=== PATIENT | male | born 1950 | race Caucasian/White ===

== ENCOUNTER → 2024-01-15 | Outpatient (CLI) | payer OTHER ==
--- NOTE | 2024-01-15 14:54 | P.PAINPG ---
PQRS Measure Charge Sheet Comment: HISTORY OF PRESENT ILLNESS: A 74 yr old male as a referral from the [facility] presents today w severe and chronic L hip pain secondary to L hip DJD for evaluation. Pt states pain level is provoked at 10 /10 in intensity, constant, localized in the L hip, predominantly axial, throbbing in character without shooting pain. Pain is provoked by climbing stairs. Pain is alleviated by medications (Duloxetine, Tyl), Lidoderm topical, sleep, repositioning and rest . Oswestry axial pain score at 26. PMH: OA, OP, BPH, MDD, IDDM II, CKD, HTN, CAD, Hypothyroidism, GERD, Hyperlipidemia PSH: Defibrillator, Open Heart Surgery w CABG x5, Cardiac Cath w Stents, Cardiac Ablation, R 2nd Digit Surgery, RUE Surgery, Tonsillectomy SH: Daily tobacco use, Hx of ETOH abuse (Sober x 40 yrs), No illicit drug use. . FH: CAD, DM, COPD, CA. All: See list Meds: See list REVIEW OF ORGAN SYSTEMS: CONSTITUTIONAL: No fevers or chills. No recent weight loss. NEUROLOGICAL: + numbness and tingling along the distal extremities. No seizure disorders or headaches. MUSCULOSKELETAL: + pain PSYCHIATRIC: Denies current depression or suicidal thoughts. Physical Examinations : Constitutional : Cooperative , not in acute distress . Neurologic : Cranial nerve II to XII intact. No focal neurological deficits. Psychiatric : alert & oriented x 3. Matching mood & appropriate affect. Judgment & insight intact. Musculoskeletal : Cervical Spine Motor strength in the deltoid and biceps: Normal right side. Normal Left side Motor strength biceps and the wrist extensors: Normal right side . Normal left side Motor strength in the triceps muscle: Normal right side. Normal left side Deep tendon reflexes: Normal at the biceps. Normal at Brachioradialis. Normal at triceps Vertebral body tenderness to deep palpation over Cervical facet loading test: positive bilaterally Spurling test: positive bilaterally Neck distraction test: positive bilaterally Maryam sign: positive bilaterally Lumbar spine Motor strength lower extremities ,thigh and legs 5/5 Right side , 5/5 Left side Deep tendon reflexes : Normal Knee Jerk. Normal Ankle Jerk Vertebral body tenderness over L5 Brunson Test positive L L5-S1 Lumbar facet Loading Test: positive Right / positive Left Range of motion of the lumbar spine Flexion 30 degrees, extension 10 degrees Straight Leg Raise test: Left/ Right positive at degrees Seema test: positive right / positive left. Severe tenderness over the Sacroiliac joint on the Right / Left sides Gaenslen test: positive bilaterally Seated flexion test: positive bilaterally. Sacral spine : Severe tenderness over the Sacroiliac joint: right side / left side Range of motion: Flexion of the lumbar spine <60 degrees Range of motion: Extension of the lumbar spine <20 degrees Gaenslen's Test positive Seema test: positive right side / left side Thigh Thrust Test Sacral Thrust Test Imaging: CT non contrast of the lumbar spine from 12/22/23 reviewed Assessment/ Plan : Lumbar DDD Recommendation of L TFESI L5-S1 #1. May need a series of injections for optimal pain relief. Risks, benefits of procedure discussed and patient verbalized understanding. Admits to anti- coagulant use or medical history of diabetes. Protocol for discontinuation/ continuation of medications karthikeyan procedure discussed. Minimal anesthesia provided, if clinically indicated, consisting of Versed and Fentanyl. Would benefit from L hip x ray M16.10 May need additional testing if indicated. All questions answered. I have spent greater than 30 minutes on patient care today. Dr Taylor was available by phone for the evaluation of this patient. The time was used to review the medical records including relevant urine studies and Prescription history (MAPs), review of the available imaging, evaluation and examination of the patient, coordination of care with the medical staff and if applicable referring physicians, as well as creation of the medical record Controlled Substance Measures - Controlled Substance Measures Is patient prescribed a controlled substance at discharge?: No
[2024-01-15 15:05] VITALS: BP 132/73; PULSE 86; RESP 16
== END ==
LOC: PNWHC3 13:46
PROVIDERS: ATTEND Specialist
DX: M54.30 Sciatica, unspecified side (principal); M43.17 Spondylolisthesis, lumbosacral region; M51.37 Other intervertebral disc degeneration, lumbosacral region; Z87.891 Personal history of nicotine dependence
CPT/HCPCS: 99211

== ENCOUNTER → 2024-01-15 | Outpatient (CLI) | payer OTHER ==
--- NOTE | 2024-01-15 17:04 | XR ---
EXAMINATION TYPE: XR Hip Complete LT DATE OF EXAM: 01/15/2024 3:05 PM CLINICAL INDICATION:Male, 74 years old with history of M16.10 UNILATERAL PRIMARY OSTEOARTHRITIS, UNSP ECIF; PHH COMPARISON: None. TECHNIQUE: XR Hip Complete LT; hip was examined in the frontal and lateral projections and a AP pelvi s. FINDINGS: No evidence for acute process, joint dislocation or significant soft tissue swelling. Osteo phyte formation of the superior acetabulum of the hip. There is moderate joint space narrowing. I dis cussed the arterial vasculature. IMPRESSION: 1. No evidence for acute process. 2. Moderate to severe hip osteoarthrosis.
== END | disposition home or self-care (01) ==
LOC: RADXRMAIN 14:49
PROVIDERS: ATTEND Physician Assistant Medical
DX: M16.12 Unilateral primary osteoarthritis, left hip (principal)
CPT/HCPCS: 73502

== ENCOUNTER → 2024-01-29 | Outpatient (CLI) | payer OTHER ==
--- NOTE | 2024-01-29 13:53 | CT ---
EXAMINATION TYPE: CT hip LT wo con DATE OF EXAM: 01/29/2024 COMPARISON: None HISTORY: left hip pain CT DLP: 221.9 mGycm Automated exposure control for dose reduction was used. FINDINGS: There is no left hip fracture, dislocation or focal intraosseous abnormality. The joint space is well -preserved. There is hypertrophic spurring of the acetabulum indicating mild osteoarthritis. The left hemipelvis is intact. IMPRESSION: 1. No hip fracture or dislocation. 2. Unremarkable left hemipelvis without evidence of trauma. 3. Mild osteoarthritic change of the left hip
== END | disposition home or self-care (01) ==
LOC: RADCTMAIN 13:17
PROVIDERS: ATTEND Specialist
DX: M16.12 Unilateral primary osteoarthritis, left hip (principal); M54.32 Sciatica, left side

== ENCOUNTER 2024-02-03 10:34 | Day surgery (SDC) | payer OTHER ==
[~2024-02-03 10:34] MED LIST: LACTATED RINGERS 1,000 ML IV SCH
[2024-02-03 11:07] VITALS: TEMP 97.1
[2024-02-03 11:13] LABS: Glucose,Whole Blood 139 mg/dL (70-110)
[2024-02-03] MEDS ORDERED: DEXAMETHASONE SOD PHOSPHATE 10 MG/ML 1 ML VIAL ONE (11:31)
[2024-02-03] MEDS ORDERED: IOPAMIDOL M200 10 ML VIAL ONE (11:31)
--- NOTE | 2024-02-03 11:39 | P.PCN ---
Date of Procedure: 02/03/24 Description of Procedure: PREOPERATIVE DIAGNOSIS: Lumbar radiculopathy POSTOPERATIVE DIAGNOSIS: Lumbar radiculopathy PROCEDURE 1. Transforaminal epidural steroid injection under fluoroscopic guidance left L5-S1 2. Lumbar epidurogram IMAGING Fluoroscopy was used, images where saved to the medical record ANESTHESIA: Patient re-evaluated immediately prior to sedation local only EBL: Minimal PROCEDURE DESCRIPTION / TECHNIQUE: The patient was seen and identified in the preoperative area. Risks, benefits, complications, and alternatives were discussed with the patient. The patient agreed to proceed with the procedure and signed the consent, vital signs were stable prior to the procedure. Patient was taken to the OR and time out was completed. The patient was placed in the prone position on procedure table and a pillow was placed under the abdomen to reduce lumbar lordosis. The lumbosacral area was prepped and draped in the usual sterile fashion. Vital signs were closely monitored during the procedure. Conscious sedation was used. Using oblique fluoroscopy, the chin of the "Sea dog" at the pedicle and the skin and deeper tissues just below was localized with 1% lidocaine. Subsequently, a 22-gauge 3.5-inch spinal needle was advanced under a tunneled view fluoroscopic guidance just underneath the chin of the "Sea dog". Under lateral fluoroscopy, the needle was then advanced to the posterior border interforaminal space. After negative aspiration of CSF and blood and with no paresthesias, 1 mL of Omnipaque-240 contrast dye was injected excellent epidurogram. Subsequently, a solution totalling 2ml of dexamethasone and PFNS was injected after negative aspiration (total of 10mg of dexamethasone was used). The needle was removed intact. COMPLICATIONS: None DISPOSITION: The patient was placed in a supine position and transferred to the recovery area in a stable condition for observation. There was no evidence of lower extremity motor or sensory deficit after the procedure. Patient was discharged from the recovery room after meeting discharge criteria. Home discharge instructions were given to the patient by the staff. The patient was reexamined prior to discharge. Follow up as directed.
[2024-02-03 12:04] VITALS: BP 109/66; PULSE 72; RESP 14
--- NOTE | 2024-02-03 12:05 | FL ---
EXAMINATION TYPE: FL guided pain mgmt statistic DATE OF EXAM: 02/03/2024 FLUOROSCOPY Fluoroscopy time of 11 seconds was used during lumbar nerve root injections. 2 image/s document/s th e procedure. 0.71932 mGycm2 DAP dose
== END 2024-02-03 12:08 | disposition home or self-care (01) ==
LOC: ORPAIN 10:34
PROVIDERS: ATTEND Hospitalist
DX: M54.16 Radiculopathy, lumbar region (principal); E11.9 Type 2 diabetes mellitus without complications; I48.91 Unspecified atrial fibrillation; Z79.01 Long term (current) use of anticoagulants
CPT/HCPCS: 64483; J1100; Q9966

== ENCOUNTER 2024-02-11 01:52 | Inpatient (IN) | payer OTHER, MEDICARE ==
[2024-02-11] MEDS: ASPIRIN 81 MG PO STA (02:07)
[2024-02-11] MEDS: SODIUM CHLORIDE 0.9% 1,000 ML IV STA ×2 (02:07→03:16)
[2024-02-11] MEDS: DEXTROSE 5% IN WATER 100 ML with AMIODARONE 150 MG IV ONE (02:08)
[2024-02-11] MEDS: AMIODARONE 360 MG in DEXTROSE 5% IN WATER 200 ML IV ONE (02:08)
[2024-02-11] MEDS: HEPARIN SODIUM 1,000 UN/ML (10ML VL) IV ONE (02:13)
[2024-02-11] MEDS: HEPARIN SOD,PORK IN 0.45% NACL 25,000 UNIT in 0.45% NACL 1 250ML.BAG IV SCH (02:21)
[2024-02-11 02:38] LABS: ALT 17 U/L (4-49); AST 18 U/L (17-59); African American GFR (CKD) 90 (>60 ml/min/1.73 sqM); Albumin 3.9 g/dL (3.5-5.0); Alkaline Phosphatase 60 U/L (38-126); Anion Gap 7 mmol/L; Blood Urea Nitrogen 14 mg/dL (9-20); Calcium 8.9 mg/dL (8.4-10.2); Carbon Dioxide 24 mmol/L (22-30); Chloride 105 mmol/L (98-107); Glucose 157 mg/dL (74-99); Magnesium 1.9 mg/dL (1.6-2.3); Non-African American GFR(CKD) 78 (>60 ml/min/1.73 sqM); Potassium 3.9 mmol/L (3.5-5.1); Sodium 136 mmol/L (137-145); Total Bilirubin 0.7 mg/dL (0.2-1.3); Total Protein 6.1 g/dL (6.3-8.2)
[2024-02-11 02:58] LABS: Partial Thromboplastin Time 26.6 sec (22.0-30.0); Prothrombin Time 10.9 sec (10.0-12.5)
[2024-02-11] MEDS ORDERED: NALOXONE 0.4 MG/ML 1 ML VIAL IV PRN (03:12)
--- NOTE | 2024-02-11 03:34 | ED ---
General Adult HPI - General Chief complaint: Chest Pain Stated complaint: palputations, defibulator Time Seen by Provider: 02/11/24 01:52 Source: patient, EMS, RN notes reviewed, old records reviewed Mode of arrival: EMS Limitations: no limitations - History of Present Illness Initial comments: Patient is a 74-year-old male who presents emergency department complaining of heart palpitations, as well as AICD firing. Patient has a past medical history remarkable for hypertension, atrial fibrillation, CABG. States he is on Eliquis. Receives most of his care through the [facility]. Patient states that his AICD fired 5 times prior to arrival here in the emergency department. Yesterday evening he was having lightheadedness episodes with heart palpitations. This is when the AICD fired shortly prior to arrival. It occurred 5 times over the course of approximately 1 minute. Has not fired since. Presents for further evaluation at this time. Denies any other acute complaints. States he currently does not have lightheadedness or heart palpitations. Denies any nausea or vomiting. Denies abdominal pain. Denies any aldair chest pain at any point, endorsing only strong heart palpitations at home.. Denies any shortness of breath. Denies fevers or chills or cough. No other acute complaints at this time. Presents for further evaluation. - Related Data Home Medications Medication Instructions Recorded Confirmed Acetaminophen Tab [Tylenol Tab] 500 mg PO Q6H 02/02/24 02/03/24 Afluzosine 10 mg PO HS 02/02/24 02/03/24 Apixaban [Eliquis] 5 mg PO BID 02/02/24 02/03/24 B12 (Unk) 500 mcg PO DAILY 02/02/24 02/03/24 Cholecalciferol (Vitamin D3) 50 mcg PO DAILY 02/02/24 02/03/24 [Vitamin D3 (50 Mcg = 2000 Iu)] DULoxetine HCL [Cymbalta] 60 mg PO DAILY 02/02/24 02/03/24 Empagliflozin [Jardiance] 25 mg PO DAILY 02/02/24 02/03/24 Eplerenone 25 mg PO DAILY 02/02/24 02/03/24 Folic Acid 1 mg PO DAILY 02/02/24 02/03/24 Furosemide [Lasix] 40 mg PO DAILY 02/02/24 02/03/24 Levothyroxine Sodium 125 mcg PO DAILY 02/02/24 02/03/24 Melatonin 3 mg PO HS 02/02/24 02/03/24 Pantoprazole [Protonix] 40 mg PO DAILY 02/02/24 02/03/24 Ranolazine (Unk) 1 dose PO BID 02/02/24 02/03/24 Rosuvastatin Calcium 40 mg PO HS 02/02/24 02/03/24 Sacubitril/Valsartan [Entresto 24 1 each PO BID 02/02/24 02/03/24 mg-26 mg Tablet] Vit C( Unk) 500 mg PO DAILY 02/02/24 02/03/24 carvediloL [Carvedilol] 25 mg PO BID 02/02/24 02/03/24 metFORMIN HCL [Metformin HCl] 1,000 mg PO BID 02/02/24 02/03/24 Allergies Allergy/AdvReac Type Severity Reaction Status Date / Time No Known Allergies Allergy Verified 02/11/24 02:01 Review of Systems ROS Statement: Those systems with pertinent positive or pertinent negative responses have been documented in the HPI. Review of Systems: CONST: Denies fever EYES: Denies blurry vision ENT: Denies nasal congestion C/V: Endorses intermittent heart palpitations RESP: Denies shortness of breath GI: Denies abdominal pain : Denies dysuria SKIN: Denies rash. MSK: Denies joint pain. NEURO: Denies headache ROS Other: All systems not noted in ROS Statement are negative. Past Medical History Past Medical History: Atrial Fibrillation, Chest Pain / Angina History of Any Multi-Drug Resistant Organisms: None Reported Past Surgical History: Heart Catheterization Past Psychological History: No Psychological Hx Reported Smoking Status: Unknown if ever smoked Past Alcohol Use History: None Reported Past Drug Use History: None Reported General Exam - General Exam Comments Initial Comments: General: Appears in no acute distress. HEAD: Normal with no signs of head trauma. EYES: PERRLA, EOMI, conjunctiva normal, no discharge. ENT: Hearing grossly intact, normal oropharynx. RESPIRATORY: Clear breath sounds bilaterally. No wheezes, rales, or rhonchi. C/V: Irregular rate and rhythm. S1 and S2 auscultated. No significant peripheral edema. Peripheral pulses 2+ intact throughout. ABD: Abd is soft, nontender, nondistended EXT: Normal range of motion, no obvious deformity SKIN: No rashes or lesions observed on exposed skin. NEURO: Alert and oriented x 4. Limitations: no limitations Course Vital Signs 02/11/24 02/11/24 02/11/24 01:53 01:57 02:00 Temperature 98.9 F Pulse Rate 172 H Pulse Rate [ 128 H 98 Pulse Oximetery ] Respiratory 20 16 17 Rate Blood Pressure 114/87 Blood Pressure 140/75 [Right Arm] O2 Sat by Pulse 97 97 96 Oximetry 02/11/24 02/11/24 02/11/24 02:15 02:30 02:46 Temperature Pulse Rate 74 Pulse Rate [ 64 73 Pulse Oximetery ] Respiratory 13 10 L 14 Rate Blood Pressure 111/61 Blood Pressure 109/60 113/63 [Right Arm] O2 Sat by Pulse 96 95 97 Oximetry 02/11/24 02/11/24 02/11/24 02:50 03:10 03:20 Temperature Pulse Rate 71 67 62 Pulse Rate [ Pulse Oximetery ] Respiratory 19 13 15 Rate Blood Pressure 111/61 110/61 107/61 Blood Pressure [Right Arm] O2 Sat by Pulse 96 95 95 Oximetry 02/11/24 02/11/24 02/11/24 03:30 03:40 04:00 Temperature Pulse Rate 68 61 Pulse Rate [ 63 Pulse Oximetery ] Respiratory 17 14 13 Rate Blood Pressure 107/61 123/67 Blood Pressure 111/61 [Right Arm] O2 Sat by Pulse 97 96 99 Oximetry Medical Decision Making - Medical Decision Making Was pt. sent in by a medical professional or institution (, PA, SLICING MACHINE FEEDER, urgent care, hospital, or alf...) When possible be specific @ -No Did you speak to anyone other than the patient for history (EMS, parent, family, police, friend...)? What history was obtained from this source @ -No Did you review nursing and triage notes (agree or disagree)? Why? @ -I reviewed and agree with nursing and triage notes Were old charts reviewed (outside hosp., previous admission, EMS record, old EKG , old radiological studies, urgent care reports/EKG's, alf records)? Report findings @ -Reviewed interrogation report for the device which does show that patient appears to have been in runs of ventricular tachycardia at home which likely triggered the AICD to fire. Differential Diagnosis (chest pain, altered mental status, abdominal pain women, abdominal pain men, vaginal bleeding, weakness, fever, dyspnea, syncope, headache, dizziness, GI bleed, back pain, seizure, CVA, palpatations, mental health, musculoskeletal)? @ -Differential Palpitations Ventricular arrhythmias, atrial arrhythmias, myocardial infarction, anemia, thyrotoxicosis, electrolyte imbalance, hypokalemia, pulmonary embolism, pulmonary disease, drugs, alcohol, anxiety, stress.... This is not meant to be an all-inclusive list. EKG interpreted by me (3pts min.). @ -As above X-rays interpreted by me (1pt min.). @ -Chest x-ray reveals no obvious acute cardiopulmonary process. CT interpreted by me (1pt min.). @ -None done U/S interpreted by me (1pt. min.). @ -None done What testing was considered but not performed or refused? (CT, X-rays, U/S, labs)? Why? @ -None What meds were considered but not given or refused? Why? @ -None Did you discuss the management of the patient with other professionals (ronnell galloway i.e. , PA, SLICING MACHINE FEEDER, lab, RT, psych nurse, social media director, pantry cook, teacher, equal employment opportunity officer, manager rn case)? Give summary @ -Discussed with on-call cardiology, Dr. Llamas who was in agreement plan for amiodarone drip and aspirin. Also requested patient be placed on heparin drip. Otherwise was in agreement with plan for workup. Would like to be notified if patient has severe chest pain or change in clinical status. I spoke with the admitting physician, Dr. Summers who accepted the admission. Was smoking cessation discussed for >3mins.? @ -No Was critical care preformed (if so, how long)? @ -Yes, 32 minutes. Were there social determinants of health that impacted care today? How? ( Homelessness, low income, unemployed, alcoholism, drug addiction, transportation, low edu. Level, literacy, decrease access to med. care, group home, rehab)? @ -No Was there de-escalation of care discussed even if they declined (Discuss DNR or withdrawal of care, Hospice)? DNR status @ -No What co-morbidities impacted this encounter? (DM, HTN, Smoking, COPD, CAD, Cancer, CVA, ARF, Chemo, Hep., AIDS, mental health diagnosis, sleep apnea, morbid obesity)? @ -CABG, atrial fibrillation, AICD Was patient admitted / discharged? Hospital course, mention meds given and route, prescriptions, significant lab abnormalities, going to OR and other pertinent info. @ -Based on the patient's presentation and physical exam, presents emergency department with primary complaint of AICD firing. Has a significant cardiac history. Patient was placed on room 5 upon arrival and on the monitor patient was going in and out of runs of ventricular tachycardia. Remainder of his vital signs within acceptable limits. Patient was placed on the pads and portable defibrillator monitor placed at bedside. Currently is not undergoing shocks by his own AICD. Patient initiated on amiodarone drip. EKG is otherwise revealed no evidence of acute ischemic process. We will obtain cardiopulmonary workup. Patient remains asymptomatic at this time. He was in agreement this plan. I did discuss the case with Dr. Llamas of cardiology upon arrival for the patient when he went into his runs of V. tach. He was in agreement the plan for workup in addition to aspirin. Requested patient be placed on heparin and he be notified of any change in clinical status. Repeat EKG shows a paced rhythm with no runs of V. tach. Chest x-ray shows no obvious acute cardiopulmonary process. Laboratory studies remarkable for e levated troponin of 0.067. On reevaluation, patient remains asymptomatic. Will continue to monitor at this time. He will be admitted to 3 S. Echo ordered. Will continue with amiodarone, heparin therapy. Cardiology already consulted. He was in agreement this plan. I spoke with the admitting physician, Dr. Summers who accepted the admission. Patient's device was interrogated and device report placed on the patient's chart. Does appear that he was in runs of V. tach at home which likely trig gered the AICD to fire. Undiagnosed new problem with uncertain prognosis? @ -No Drug Therapy requiring intensive monitoring for toxicity (Heparin, Nitro, Insulin, Cardizem)? @ -Heparin Were any procedures done? @ -No Diagnosis/symptom? @ -Ventricular tachycardia, AICD firing, elevated troponin Acute, or Chronic, or Acute on Chronic? @ -Acute Uncomplicated (without systemic symptoms) or Complicated (systemic symptoms)? @ -Complicated Side effects of treatment? @ -No Exacerbation, Progression, or Severe Exacerbation? @ -No Poses a threat to life or bodily function? How? (Chest pain, [place], [place], pneumonia, PE, COPD, DKA, ARF, appy, cholecystitis, CVA, Diverticulitis, Homicidal, Suicidal, threat to staff... and all critical care pts) @ -Yes - Lab Data Result diagrams: 02/11/24 01:30 02/11/24 01:30 Lab Results 02/11/24 02/11/24 02/11/24 Range/Units 01:30 01:30 01:30 WBC 11.0 H (3.8-10.6) k/uL RBC 4.30 (4.30-5.90) m/uL Hgb 15.2 (13.0-17.5) gm/dL Hct 45.1 (39.0-53.0) % MCV 104.9 H (80.0-100.0) fL MCH 35.5 H (25.0-35.0) pg MCHC 33.8 (31.0-37.0) g/dL RDW 13.1 (11.5-15.5) % Plt Count 90 L (150-450) k/uL MPV 12.0 Neutrophils % 81 % Lymphocytes % 11 % Monocytes % 7 % Eosinophils % 1 % Basophils % 0 % Neutrophils # 8.9 H (1.3-7.7) k/uL Lymphocytes # 1.2 (1.0-4.8) k/uL Monocytes # 0.7 (0-1.0) k/uL Eosinophils # 0.1 (0-0.7) k/uL Basophils # 0.0 (0-0.2) k/uL Manual Slide Review Performed Macrocytosis Slight PT 10.9 (10.0-12.5) sec INR 1.0 (<1.2) APTT 26.6 (22.0-30.0) sec Sodium 136 L (137-145) mmol/L Potassium 3.9 (3.5-5.1) mmol/L Chloride 105 (98-107) mmol/L Carbon Dioxide 24 (22-30) mmol/L Anion Gap 7 mmol/L BUN 14 (9-20) mg/dL Creatinine 0.96 (0.66-1.25) mg/dL Est GFR (CKD-EPI)AfAm 90 (>60 ml/min/1.73 sqM) Est GFR (CKD-EPI)NonAf 78 (>60 ml/min/1.73 sqM) Glucose 157 H (74-99) mg/dL Calcium 8.9 (8.4-10.2) mg/dL Magnesium 1.9 (1.6-2.3) mg/dL Total Bilirubin 0.7 (0.2-1.3) mg/dL AST 18 (17-59) U/L ALT 17 (4-49) U/L Alkaline Phosphatase 60 (38-126) U/L Troponin I (0.000-0.034) ng/mL Total Protein 6.1 L (6.3-8.2) g/dL Albumin 3.9 (3.5-5.0) g/dL 02/11/24 Range/Units 01:30 WBC (3.8-10.6) k/uL RBC (4.30-5.90) m/uL Hgb (13.0-17.5) gm/dL Hct (39.0-53.0) % MCV (80.0-100.0) fL MCH (25.0-35.0) pg MCHC (31.0-37.0) g/dL RDW (11.5-15.5) % Plt Count (150-450) k/uL MPV Neutrophils % % Lymphocytes % % Monocytes % % Eosinophils % % Basophils % % Neutrophils # (1.3-7.7) k/uL Lymphocytes # (1.0-4.8) k/uL Monocytes # (0-1.0) k/uL Eosinophils # (0-0.7) k/uL Basophils # (0-0.2) k/uL Manual Slide Review Macrocytosis PT (10.0-12.5) sec INR (<1.2) APTT (22.0-30.0) sec Sodium (137-145) mmol/L Potassium (3.5-5.1) mmol/L Chloride (98-107) mmol/L Carbon Dioxide (22-30) mmol/L Anion Gap mmol/L BUN (9-20) mg/dL Creatinine (0.66-1.25) mg/dL Est GFR (CKD-EPI)AfAm (>60 ml/min/1.73 sqM) Est GFR (CKD-EPI)NonAf (>60 ml/min/1.73 sqM) Glucose (74-99) mg/dL Calcium (8.4-10.2) mg/dL Magnesium (1.6-2.3) mg/dL Total Bilirubin (0.2-1.3) mg/dL AST (17-59) U/L ALT (4-49) U/L Alkaline Phosphatase (38-126) U/L Troponin I 0.067 H* (0.000-0.034) ng/mL Total Protein (6.3-8.2) g/dL Albumin (3.5-5.0) g/dL - EKG Data -: EKG Interpreted by Me EKG Comments: 12-lead Electrocardiogram Interpretation Note EKG was reviewed and interpreted by myself. 12-lead ECG performed at 0155 is interpreted by me as revealing partial ventricular paced rhythm with PVC followed by ventricular tachycardia at a rate of 137 beats per minute. Indeterminate axis. QRS duration is 218 ms, QTc is 382 ms.. Findings concerning for run of ventricular tachycardia... 12-lead Electrocardiogram Interpretation Note EKG was reviewed and interpreted by myself. 12-lead ECG performed at 0234 is interpreted by me as revealing ventricularly paced rhythm at a rate of 68 beats per minute. Indeterminate axis. QRS durations 113 ms, QTc is 430 ms.. There were no ST or T wave abnormalities to suggest myocardial ischemia or injury. R wave progression across the precordium was satisfactory. By my interpretation this EKG is non-diagnostic for acute ischemia. . Critical Care Time Critical Care Time: Yes Total Critical Care Time: 32 Disposition Clinical Impression: AICD discharge, Ventricular tachycardia, Elevated troponin Disposition: ADMITTED IP TO THIS HOSP Condition: Serious Time of Disposition: 03:12
[2024-02-11 03:35] LABS: Basophils % (A) 0 %; Eosinophils # (A) 0.1 k/uL (0-0.7); Eosinophils % (A) 1 %; HCT 45.1 % (39.0-53.0); HGB 15.2 gm/dL (13.0-17.5); Lymphocytes # (A) 1.2 k/uL (1.0-4.8); Lymphocytes % (A) 11 %; MCH 35.5 pg (25.0-35.0); MCHC 33.8 g/dL (31.0-37.0); MCV 104.9 fL (80.0-100.0); Macrocytosis Slight; Monocytes # (A) 0.7 k/uL (0-1.0); Monocytes % (A) 7 %; Neutrophils # (A) 8.9 k/uL (1.3-7.7); Neutrophils % (A) 81 %; RDW 13.1 % (11.5-15.5)
[2024-02-11 03:53] LABS: Platelet Count 90 k/uL (150-450)
[2024-02-11] MEDS: SODIUM CHLORIDE 0.9% 1,000 ML IV SCH (04:07)
--- NOTE | 2024-02-11 04:32 | XR ---
EXAM: XR Chest, 1 View CLINICAL HISTORY: Chest Pain TECHNIQUE: Frontal view of the chest. COMPARISON: No relevant prior studies available. FINDINGS: Left subclavian dual-chamber pacemaker with AICD. Heart is enlarged. Pulmonary vessels are top normal in caliber. Minimal bibasilar vascular crowding. No pleural effusion or pneumothorax. Bones are unremarkable. IMPRESSION: Cardiomegaly. Pulmonary vessels top normal in caliber. Minimal bibasilar atelectasis.
--- NOTE | 2024-02-11 04:55 | P.HPIM ---
History of Present Illness H&P Date: 02/11/24 Patient is a 74-year-old male with a PMH of CAD status post CABG and AICD placement, A-fib, who presents to the emergency room after he was shocked by his AICD. Patient notes that roughly around midnight he was sitting on his couch in his home when he suddenly developed some palpitations associated with lightheadedness and nausea. Within a few seconds, his AICD shocked him followed by multiple other shocks within a period of 1 minute. Patient notes receiving a total of 5 shocks from the AICD within a few minutes. Notes that his symptoms resolved after the shocks. He was at his baseline at the time of interview and had no active complaints. Denied experiencing chest discomfort, shortness of breath, cough, fever, chills, abdominal pain, diarrhea. Chest x-ray in the emergency room revealed cardiomegaly with no other acute abnormalities. Laboratory evaluation remarkable for leukocytosis of 11.0, MCV 104.9, platelet count 90, sodium 136, glucose 157, troponin 0.067. Of note, the patient was noted to be in asymptomatic V. tach in the emergency room and was started on amiodarone infusion. Case was also discussed with cardiology on- call. ED documentation reviewed and case discussed with ED provider. Review of systems: Pertinent positives and negatives as discussed in HPI, a complete review of systems was performed and all other systems are negative. Physical examination: Vital signs reviewed General: non toxic, no distress, appears at stated age, normal weight Derm: no unusual rashes/lesions, warm Head: atraumatic, normocephalic, symmetric Eyes: EOMI, no lid lag, anicteric sclera, pupils equal round reactive to light ENT: Nose and ears atraumatic Neck: No cervical lymphadenopathy, trachea midline, supple Mouth: no lip lesion, mucus membranes moist Cardiovascular: S1S2 reg, no murmur, positive dorsalis pedis pulse bilateral, no edema Lungs: CTA bilateral, no rhonchi, no rales, no accessory muscle use Abdominal: soft, nontender to palpation, no guarding Ext: muscle strength 5 out of 5 in all 4 extremities grossly, no gross muscle atrophy, no contractures, Neuro: CN II-XI grossly intact, no gross focal neuro deficits Psych: Alert, oriented, appropriate affect Assessment: Tachyarrhythmia with AICD firing, V. tach in ED Leukocytosis, likely secondary to acute stressor with no signs of active infection at this time Elevated troponin, likely due to ongoing tachyarrhythmia and shocks Thrombocytopenia, no baseline available for comparison Macrocytosis Chronic conditions: A-fib Imaging: Chest x-ray in the emergency room revealed cardiomegaly with no other acute abnormalities. Data Review: Laboratory evaluation remarkable for leukocytosis of 11.0, MCV 104.9, platelet count 90, sodium 136, glucose 157, troponin 0.067. Of note, the patient was noted to be in asymptomatic V. tach in the emergency room and was started on amiodarone infusion. Case was also discussed with cardiology on-call. Plan: Cardiology consulted Cardiac monitoring Trend troponin Continue patient on amiodarone and heparin infusions Continue IV fluids with normal saline 75 cc/h Echocardiogram ordered Check B12 and folate levels Resume home medications once reconciled DVT prophylaxis: Heparin infusion The patient is admitted with an anticipated greater than 2 midnight stay for evaluation of tachyarrhythmia CODE STATUS: Full Code Discussed with: Patient Anticipated discharge place: Home Past Medical History Past Medical History: Atrial Fibrillation, Chest Pain / Angina Additional Past Medical History / Comment(s): type 2 DM, sciatica History of Any Multi-Drug Resistant Organisms: None Reported Past Surgical History: Heart Catheterization Past Psychological History: No Psychological Hx Reported Smoking Status: Unknown if ever smoked Past Alcohol Use History: None Reported Past Drug Use History: None Reported - Past Family History Father Family Medical History: Cancer Medications and Allergies Home Medications Medication Instructions Recorded Confirmed Type Acetaminophen Tab [Tylenol Tab] 500 mg PO Q6H 02/02/24 02/03/24 History Afluzosine 10 mg PO HS 02/02/24 02/03/24 History Apixaban [Eliquis] 5 mg PO BID 02/02/24 02/03/24 History B12 (Unk) 500 mcg PO DAILY 02/02/24 02/03/24 History Cholecalciferol (Vitamin D3) 50 mcg PO DAILY 02/02/24 02/03/24 History [Vitamin D3 (50 Mcg = 2000 Iu)] DULoxetine HCL [Cymbalta] 60 mg PO DAILY 02/02/24 02/03/24 History Empagliflozin [Jardiance] 25 mg PO DAILY 02/02/24 02/03/24 History Eplerenone 25 mg PO DAILY 02/02/24 02/03/24 History Folic Acid 1 mg PO DAILY 02/02/24 02/03/24 History Furosemide [Lasix] 40 mg PO DAILY 02/02/24 02/03/24 History Levothyroxine Sodium 125 mcg PO DAILY 02/02/24 02/03/24 History Melatonin 3 mg PO HS 02/02/24 02/03/24 History Pantoprazole [Protonix] 40 mg PO DAILY 02/02/24 02/03/24 History Ranolazine (Unk) 1 dose PO BID 02/02/24 02/03/24 History Rosuvastatin Calcium 40 mg PO HS 02/02/24 02/03/24 History Sacubitril/Valsartan [Entresto 24 1 each PO BID 02/02/24 02/03/24 History mg-26 mg Tablet] Vit C( Unk) 500 mg PO DAILY 02/02/24 02/03/24 History carvediloL [Carvedilol] 25 mg PO BID 02/02/24 02/03/24 History metFORMIN HCL [Metformin HCl] 1,000 mg PO BID 02/02/24 02/03/24 History Allergies Allergy/AdvReac Type Severity Reaction Status Date / Time No Known Allergies Allergy Verified 02/11/24 02:01 Physical Exam Vitals: Vital Signs Temp Pulse Pulse Resp BP BP Pulse Ox 02/11/24 04:00 63 13 111/61 99 02/11/24 03:40 61 14 123/67 96 02/11/24 03:30 68 17 107/61 97 02/11/24 03:20 62 15 107/61 95 02/11/24 03:10 67 13 110/61 95 02/11/24 02:50 71 19 111/61 96 02/11/24 02:46 74 14 111/61 97 02/11/24 02:30 73 10 L 113/63 95 02/11/24 02:15 64 13 109/60 96 02/11/24 02:00 98 17 140/75 96 02/11/24 01:57 128 H 16 97 02/11/24 01:53 98.9 F 172 H 20 114/87 97 Intake and Output 02/10/24 02/10/24 02/11/24 14:59 22:59 06:59 Other: Weight 91.626 kg Results CBC & Chem 7: 02/11/24 01:30 02/11/24 01:30 Labs: Abnormal Lab Results - Last 24 Hours (Table) 02/11/24 02/11/24 02/11/24 Range/Units 01:30 01:30 01:30 WBC 11.0 H (3.8-10.6) k/uL MCV 104.9 H (80.0-100.0) fL MCH 35.5 H (25.0-35.0) pg Plt Count 90 L (150-450) k/uL Neutrophils # 8.9 H (1.3-7.7) k/uL Sodium 136 L (137-145) mmol/L Glucose 157 H (74-99) mg/dL Troponin I 0.067 H* (0.000-0.034) ng/mL Total Protein 6.1 L (6.3-8.2) g/dL
[2024-02-11] MEDS: AMIODARONE 450 MG in DEXTROSE 5% IN WATER 250 ML IV SCH (08:26)
[2024-02-11] MEDS: HEPARIN SODIUM 1,000 UN/ML (10ML VL) IV PRN (10:32)
[2024-02-11 12:13] LABS: Glucose,Whole Blood 150 mg/dL (70-110)
[2024-02-11] MEDS: INSULIN DETEMIR (LEVEMIR) 100 UNIT/ML SYR SQ SCH (12:17)
[2024-02-11] MEDS ORDERED: DEXTROSE 50% SYRINGE 50 ML IVP PRN ×2 (12:19)
[2024-02-11] MEDS: INSULIN ASPART (NovoLOG) 100 UNIT/ML VIAL SQ SCH (13:57)
[2024-02-11] MEDS: APIXABAN 5 MG TAB PO SCH (14:42)
--- NOTE | 2024-02-11 15:28 | P.CRDCN ---
History of Present Illness Consult date: 02/11/24 Reason for Consult (text): V. 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 Patient gives history of a cardiac catheterization following his CABG where he was found to have blockages but was not conducive to angioplasty. This was approximately 7 to 8 years ago. Patient states that yesterday he was feeling dizzy all day and his heart was pounding. Last evening he took the dog out like he normally would do but he had sudden dizziness that was significantly worse. He was going to the steps on the porch and received 3 shocks from his AICD. By the time he got to the chair on the porch, he received another 2 shocks. He states he has had discharge from the AICD in the past but it was many years ago. He denies having any cough, fever, wheezing. He denies any blood in his urine or stool. No stroke or seizure. He does have history of a TIA in the past. No PND. He is a smoker of cigars but "not much". 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 He states he drinks 1 cup of coffee per day. EKG: Dual-chamber paced rhythm with runs of nonsustained ventricular tachycardia Chest x-ray: Cardiomegaly. Pulmonary vessels top normal in caliber. Minimal bibasilar atelectasis. Laboratory studies: WBC 11, hemoglobin 15.2, platelet count 90. Troponin 0.067, 0.892, 0.694. Sodium 136, potassium 3.9, creatinine 0.96. Home cardiac medications: Eliquis 5 mg twice daily, Coreg 25 mg twice daily, Jardiance 25 mg daily, eplerenone 25 mg daily, Lasix 40 mg daily and 40 mg as needed, Nitrostat as needed, Ranexa 1000 mg twice daily, rosuvastatin 20 mg at bedtime, Entresto 24-26 mg twice daily, patient also on levothyroxine 125 mcg daily. Review Of Systems: At the time of my exam: CONSTITUTIONAL: Denies fever or chills. HEENT: Denies blurred vision, vision changes, or eye pain. Denies hemoptysis CARDIOVASCULAR: Denies chest pain. Denies orthopnea. Denies PND. Denies palpitations RESPIRATORY: Denies shortness of breath. GASTROINTESTINAL: Denies abdominal pain. Denies nausea or vomiting. HEMATOLOGIC: Denies bleeding disorders. GENITOURINARY: Denies any blood in urine. SKIN: Denies puritis. Denies rash. Physical examination: Gen: This is a 74-year-old male in no acute distress VS: reviewed HEENT: Head is atraumatic, normocephalic. Pupils equal, round. Sclerae is anicteric. NECK: Supple. No JVD. LUNGS: Decreased air exchange bilaterally. No intercostal retractions. HEART: Regular rate and rhythm. Soft systolic ejection murmur 1/6 at the base. ABDOMEN: Soft No tenderness. EXTREMITIES: No pedal edema. No calf tenderness. NEUROLOGICAL: Patient is awake, alert and oriented x3. Assessment: AICD discharge Nonsustained ventricular tachycardia Ischemic cardiomyopathy Coronary artery disease with previous 5 vessel CABG in 2006 followed by cardiac catheterization with blockages found not to be amenable to angioplasty Paroxysmal atrial fibrillation with history of previous ablations probably due to atrial fibrillation Diabetes mellitus type 2 Thrombocytopenia Tobacco use and dependence History of TIA Plan: Resume patient's home cardiac medications Continue heparin drip and resume Eliquis Continue amiodarone for another 24 hours Start patient on aspirin 81 mg daily Obtain 2-D echocardiogram and Doppler study to assess cardiac structure and function Plan is to maximize medical treatment and patient will follow-up with his director market research at [place] Further recommendations to follow based upon clinical course Thank you kindly for this consultation. Nurse practitioner note has been reviewed, I agree with documented findings and plan of care. Patient was seen and examined. Past Medical History Past Medical History: Atrial Fibrillation, Chest Pain / Angina Additional Past Medical History / Comment(s): type 2 DM, sciatica History of Any Multi-Drug Resistant Organisms: None Reported Past Surgical History: Heart Catheterization Past Psychological History: No Psychological Hx Reported Smoking Status: Unknown if ever smoked Past Alcohol Use History: None Reported Past Drug Use History: None Reported - Past Family History Father Family Medical History: Cancer Medications and Allergies Home Medications Medication Instructions Recorded Confirmed Type Apixaban [Eliquis] 5 mg PO BID 02/02/24 02/11/24 History Cholecalciferol (Vitamin D3) 50 mcg PO DAILY 02/02/24 02/11/24 History [Vitamin D3 (50 Mcg = 2000 Iu)] DULoxetine HCL [Cymbalta] 60 mg PO DAILY 02/02/24 02/11/24 History Empagliflozin [Jardiance] 25 mg PO DAILY 02/02/24 02/11/24 History Eplerenone 25 mg PO DAILY 02/02/24 02/11/24 History Folic Acid 1 mg PO DAILY 02/02/24 02/11/24 History Furosemide [Lasix] 40 mg PO DAILY PRN 02/02/24 02/11/24 History Levothyroxine Sodium 125 mcg PO DAILY 02/02/24 02/11/24 History Melatonin 3 mg PO HS 02/02/24 02/11/24 History Pantoprazole [Protonix] 40 mg PO DAILY 02/02/24 02/11/24 History Rosuvastatin Calcium 20 mg PO HS 02/02/24 02/11/24 History Sacubitril/Valsartan [Entresto 24 1 tab PO BID 02/02/24 02/11/24 History mg-26 mg Tablet] carvediloL [Carvedilol] 25 mg PO BID 02/02/24 02/11/24 History metFORMIN HCL [Metformin HCl] 1,000 mg PO BID 02/02/24 02/11/24 History Alendronate Sodium [Fosamax] 70 mg PO WEEKLY 02/11/24 02/11/24 History Alfuzosin HCl [Alfuzosin HCl ER] 10 mg PO HS 02/11/24 02/11/24 History Calcium Carbonate 500 mg PO DAILY 02/11/24 02/11/24 History Furosemide [Lasix] 40 mg PO DAILY 02/11/24 02/11/24 History Insulin Glargine,Hum.rec.anlog 17 units SQ DAILY 02/11/24 02/11/24 History [Lantus Solostar Pen] Lidocaine 5% Patch [Lidoderm] 1 patch TOPICAL DAILY 02/11/24 02/11/24 History Loperamide [Imodium] 2 mg PO DAILY PRN 02/11/24 02/11/24 History Nitroglycerin Sl Tabs [Nitrostat] 0.4 mg SUBLINGUAL Q5M PRN 02/11/24 02/11/24 History Ranolazine [Ranexa] 1,000 mg PO BID 02/11/24 02/11/24 History Allergies Allergy/AdvReac Type Severity Reaction Status Date / Time spironolactone AdvReac per [facility] - Verified 02/11/24 08:24 [From Aldactone] unknown Physical Exam Vitals: Vital Signs Temp Pulse Pulse Resp BP BP Pulse Ox 02/11/24 07:09 62 10 L 115/62 97 02/11/24 06:00 60 15 101/65 98 02/11/24 05:30 62 17 95/57 94 L 02/11/24 05:00 65 18 100/64 96 02/11/24 04:30 64 17 105/61 95 02/11/24 04:00 61 63 10 L 111/67 111/61 98 02/11/24 03:40 61 14 123/67 96 02/11/24 03:30 68 17 107/61 97 02/11/24 03:20 62 15 107/61 95 02/11/24 03:10 67 13 110/61 95 02/11/24 02:50 71 19 111/61 96 02/11/24 02:46 74 14 111/61 97 02/11/24 02:30 73 10 L 113/63 95 02/11/24 02:15 64 13 109/60 96 02/11/24 02:00 98 17 140/75 96 02/11/24 01:57 128 H 16 97 02/11/24 01:53 98.9 F 172 H 20 114/87 97 Intake and Output 02/10/24 02/11/24 02/11/24 22:59 06:59 14:59 Intake Total 181.109 Balance 181.109 Intake: Intake, IV Titration 181.109 Amount Amiodarone 360 mg In 181.109 Dextrose 5% in Water 200 ml @ 1 MG/MIN 33.333 mls/ hr IV .Q6H ONE Rx#: [id number] Other: Weight 91.626 kg Results 02/11/24 01:30 02/11/24 01:30 Cardiac Enzymes 02/11/24 02/11/24 Range/Units 01:30 01:30 AST 18 (17-59) U/L Troponin I 0.067 H* (0.000-0.034) ng/mL Coagulation 02/11/24 Range/Units 01:30 PT 10.9 (10.0-12.5) sec APTT 26.6 (22.0-30.0) sec CBC 02/11/24 Range/Units 01:30 WBC 11.0 H (3.8-10.6) k/uL RBC 4.30 (4.30-5.90) m/uL Hgb 15.2 (13.0-17.5) gm/dL Hct 45.1 (39.0-53.0) % Plt Count 90 L (150-450) k/uL Comprehensive Metabolic Panel 02/11/24 Range/Units 01:30 Sodium 136 L (137-145) mmol/L Potassium 3.9 (3.5-5.1) mmol/L Chloride 105 (98-107) mmol/L Carbon Dioxide 24 (22-30) mmol/L BUN 14 (9-20) mg/dL Creatinine 0.96 (0.66-1.25) mg/dL Glucose 157 H (74-99) mg/dL Calcium 8.9 (8.4-10.2) mg/dL AST 18 (17-59) U/L ALT 17 (4-49) U/L Alkaline Phosphatase 60 (38-126) U/L Total Protein 6.1 L (6.3-8.2) g/dL Albumin 3.9 (3.5-5.0) g/dL Current Medications Generic Name Dose Route Start Last Admin Trade Name Freq PRN Reason Stop Dose Admin Heparin Sodium (Porcine) 0 unit 02/11/24 02:06 Heparin Sodium 1,000 Un/Ml (10ml Vl) IV PER PROTOCOL PRN Low PTT Protocol Amiodarone HCl 360 mg/ 200 mls @ 33.333 mls/hr 02/11/24 02:15 02/11/24 07:34 Dextrose/Water IV 02/11/24 08:14 1 mg/min .Q6H ONE 33.333 mls/hr Titration Protocol 1 MG/MIN Amiodarone HCl 450 mg/ 250 mls @ 16.667 mls/hr 02/11/24 08:30 Dextrose/Water IV 02/12/24 02:29 .Q15H NANCY Protocol 0.5 MG/MIN Heparin Sodium/Sodium Chloride 250 mls @ 10.006 mls/hr 02/11/24 02:15 02/11/24 02:21 25,000 unit/ Sodium Chloride IV 10.92 units/kg/hr .Q24H NANCY 10.006 mls/hr Administration Protocol 10.92 UNITS/KG/HR Sodium Chloride 1,000 mls @ 75 mls/hr 02/11/24 02:07 02/11/24 03:16 Saline 0.9% IV 02/11/24 15:26 Not Given .[id number] STA Naloxone HCl 0.2 mg 02/11/24 03:12 Naloxone 0.4 Mg/Ml 1 Ml Vial IV Q2M PRN Opioid Reversal Intake and Output 02/10/24 02/11/24 02/11/24 22:59 06:59 14:59 Intake Total 181.109 Balance 181.109 Intake: Intake, IV Titration 181.109 Amount Amiodarone 360 mg In 181.109 Dextrose 5% in Water 200 ml @ 1 MG/MIN 33.333 mls/ hr IV .Q6H ONE Rx#: [id number] Other: Weight 91.626 kg 02/11/24 01:30 02/11/24 01:30
[2024-02-11 16:52] LABS: Glucose,Whole Blood 130 mg/dL (70-110)
[2024-02-11] MEDS: carvediloL 12.5 MG TAB PO SCH (17:00)
[2024-02-11 20:26] LABS: Glucose,Whole Blood 191 mg/dL (70-110)
[2024-02-11] MEDS: TAMSULOSIN 0.4 MG CAP.ER.24H PO SCH (20:39)
[2024-02-11] MEDS: RANOLAZINE 500 MG TAB.ER.12H PO SCH (20:40)
[2024-02-11] MEDS: SACUBITRIL/VALSARTAN 24 MG-26 MG TABLET PO SCH (20:40)
[2024-02-11] MEDS: ATORVASTATIN 40 MG TAB PO SCH (20:43)
[2024-02-12 04:23] VITALS: RESP 16
[2024-02-12 06:11] LABS: Glucose,Whole Blood 115 mg/dL (70-110)
[2024-02-12] MEDS: PANTOPRAZOLE 40 MG TABLET PO SCH (06:18)
[2024-02-12] MEDS: LEVOTHYROXINE 125 MCG TAB PO SCH (06:18)
[2024-02-12 07:46] LABS: Basophils % (A) 0 %; Eosinophils # (A) 0.1 k/uL (0-0.7); Eosinophils % (A) 2 %; HCT 40.6 % (39.0-53.0); HGB 12.8 gm/dL (13.0-17.5); Lymphocytes # (A) 0.9 k/uL (1.0-4.8); Lymphocytes % (A) 14 %; MCH 34.3 pg (25.0-35.0); MCHC 31.5 g/dL (31.0-37.0); MCV 108.9 fL (80.0-100.0); Macrocytosis Moderate; Mean Platelet Volume 11.5; Monocytes # (A) 0.3 k/uL (0-1.0); Monocytes % (A) 5 %; Neutrophils # (A) 4.8 k/uL (1.3-7.7); Neutrophils % (A) 78 %; RBC 3.73 m/uL (4.30-5.90); RDW 12.8 % (11.5-15.5); WBC 6.2 k/uL (3.8-10.6)
[2024-02-12 07:54] LABS: Platelet Count 85 k/uL (150-450)
[2024-02-12 08:26] LABS: ALT 14 U/L (4-49); AST 17 U/L (17-59); African American GFR (CKD) >90 (>60 ml/min/1.73 sqM); Albumin 3.3 g/dL (3.5-5.0); Alkaline Phosphatase 48 U/L (38-126); Anion Gap 3 mmol/L; Blood Urea Nitrogen 14 mg/dL (9-20); Calcium 8.7 mg/dL (8.4-10.2); Carbon Dioxide 27 mmol/L (22-30); Chloride 108 mmol/L (98-107); Glucose 98 mg/dL (74-99); Magnesium 1.9 mg/dL (1.6-2.3); Non-African American GFR(CKD) 88 (>60 ml/min/1.73 sqM); Potassium 3.6 mmol/L (3.5-5.1); Sodium 138 mmol/L (137-145); Total Bilirubin 0.7 mg/dL (0.2-1.3); Total Protein 5.6 g/dL (6.3-8.2)
[2024-02-12] MEDS: ASPIRIN 81 MG PO SCH (09:40)
[2024-02-12] MEDS: FUROSEMIDE 40 MG TAB PO SCH (09:41)
[2024-02-12] MEDS: AMIODARONE 200 MG TAB PO SCH (09:41)
[2024-02-12] MEDS: DULoxetine HCL 60 MG CAPSULE.DR PO SCH (09:41)
[2024-02-12] MEDS: Eplerenone [Eplerenone] 25 MG Tablet PO SCH (09:42)
[2024-02-12] MEDS: DAPAGLIFLOZIN PROPANEDIOL 10 MG TABLET PO SCH (09:42)
--- NOTE | 2024-02-12 09:55 | CA ---
Transthoracic Echo Report Name: Dave Crane Age: 74 Gender: M : 1950 Exam Date: 02/11/2024 13:31 Exam Location: [facility] Ht (in): 76 Wt (lb): 202 Ordering Physician: Vadim Moore MD Attending/Referring Phys: Brim Cutter Mohini Montoya RDCS Procedure CPT: Indications: runs of Vtach Cardiac Hx: Technical Quality: Fair Contrast 1: Definity Total Dose (mL): 2 Contrast 2: Total Dose (mL): MEASUREMENTS (Male / Female) Normal Values 2D ECHO LV Diastolic Diameter PLAX 6.4 cm 4.2 - 5.9 / 3.9 - 5.3 cm LV Systolic Diameter PLAX 6.1 cm IVS Diastolic Thickness 1.5 cm 0.6 - 1.0 / 0.6 - 0.9 cm LVPW Diastolic Thickness 1.4 cm 0.6 - 1.0 / 0.6 - 0.9 cm LV Relative Wall Thickness 0.4 RV Internal Dim ED PLAX 3.2 cm LA Systolic Diameter LX 5.9 cm 3.0 - 4.0 / 2.7 - 3.8 cm LV Diastolic Volume MOD BP 167.2 cm??? 67 - 155 / 56 - 104 cm??? LV Systolic Volume MOD BP 130.8 cm??? 22 - 58 / 19 - 49 cm??? LV Ejection Fraction MOD BP 21.8 % >= 55 % LV Cardiac Index MOD BP 1001.0 cm???/min???m??? LV Diastolic Volume MOD 4C 166.6 cm??? LV Systolic Volume MOD 4C 123.2 cm??? LV Ejection Fraction MOD 4C 26.0 % LV Cardiac Index MOD 4C 1192.8 cm???/min???m??? LV Diastolic Length 4C 8.4 cm LV Systolic Length 4C 8.1 cm LV Diastolic Volume MOD 2C 167.6 cm??? LV Systolic Volume MOD 2C 129.2 cm??? LV Ejection Fraction MOD 2C 22.9 % LV Cardiac Index MOD 2C 1056.4 cm???/min???m??? LV Diastolic Length 2C 8.2 cm LV Systolic Length 2C 7.4 cm LA Volume 123.0 cm??? 18 - 58 / 22 - 52 cm??? LA Volume Index 55.4 cm???/m??? 16 - 28 cm???/m??? M-MODE Aortic Root Diameter MM 3.5 cm LA Systolic Diameter MM 5.6 cm LA Ao Ratio MM 1.6 AV Cusp Separation MM 2.4 cm DOPPLER TR Peak Velocity 256.6 cm/s TR Peak Gradient 26.3 mmHg Right Ventricular Systolic Press 30.1 mmHg FINDINGS Left Ventricle Left ventricular ejection fraction is estimated at 30-35 %. Moderately increased septal wall thickness. Moderately increased left ventricular diastolic diameter. Mildly increased left ventricular diastolic volume. Severely increased left ventricular systolic volume. Severely decreased left ventricular ejection fraction. Severely reduced global left ventricular systolic function. Right Ventricle Normal right ventricular size and function. Mild pulmonary hypertension. Right Atrium Mild right atrial dilatation. Left Atrium Severely increased left atrial diameter. Severely increased left atrial volume. Moderately increased left atrial area. Mitral Valve Structurally normal mitral valve. Moderate mitral regurgitation. No mitral stenosis. Aortic Valve Trileaflet aortic valve. No aortic valve stenosis or regurgitation. Tricuspid Valve Structurally normal tricuspid valve. Mild tricuspid regurgitation. Pulmonic Valve Structurally normal pulmonic valve. Mild pulmonic regurgitation. Pericardium No pericardial or pleural effusion. Aorta Aorta at upper limits of normal. CONCLUSIONS Dilated LV with severely impaired LV function and EF around 30 to 35% Moderate mitral regurgitation Mild pulmonary hypertension Previewed by: Dr. Vasyl Edge MD (Electronically Signed) Final Date: 12 February 2024 09:54
--- NOTE | 2024-02-12 11:00 | P.PN ---
Subjective Progress Note Date: 02/12/24 Reason for Consult (text): V. tach runs, heart palpitations, defibrillator fired History of present illness: This is a 74-year-old male patient follows with the [facility] sifter and miller in [place] with past medical history of coronary artery disease with previous 5 vessel CABG done in 2006 at [facility], [facility] with generator change done 1 year ago, history of ablations. Patient gives history of a cardiac catheterization following his CABG where he was found to have blockages but was not conducive to angioplasty. This was approximately 7 to 8 years ago. Patient states that yesterday he was feeling dizzy all day and his heart was pounding. Last evening he took the dog out like he normally would do but he had sudden dizziness that was significantly worse. He was going to the steps on the porch and received 3 shocks from his AICD. By the time he got to the chair on the porch, he received another 2 shocks. He states he has had discharge from the AICD in the past but it was many years ago. He denies having any cough, fever, wheezing. He denies any blood in his urine or stool. No stroke or seizure. He does have history of a TIA in the past. No PND. He is a smoker of cigars but "not much". 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 He states he drinks 1 cup of coffee per day. EKG: Dual-chamber paced rhythm with runs of nonsustained ventricular tachycardia Chest x-ray: Cardiomegaly. Pulmonary vessels top normal in caliber. Minimal bibasilar atelectasis. Laboratory studies: WBC 11, hemoglobin 15.2, platelet count 90. Troponin 0.067, 0.892, 0.694. Sodium 136, potassium 3.9, creatinine 0.96. Home cardiac medications: Eliquis 5 mg twice daily, Coreg 25 mg twice daily, Jardiance 25 mg daily, eplerenone 25 mg daily, Lasix 40 mg daily and 40 mg as needed, Nitrostat as needed, Ranexa 1000 mg twice daily, rosuvastatin 20 mg at bedtime, Entresto 24-26 mg twice daily, patient also on levothyroxine 125 mcg daily. 02/11 Patient is seen today in follow-up on the cardiac stepdown unit. Patient denies any chest pain, dizziness, lightheadedness and no palpitations. His defibrillator has not discharged since admission. No V. tach on monitor. Patient states the echocardiogram was done this morning, report is currently pending. We are waiting for records from [facility] and [facility] which have not arrived. Blood pressure 124/73, heart rate 66, pulse ox 98% on room air. Repeat blood work reveals hemoglobin 12.8. Platelet count 85. Creatinine 0.79. Physical examination: Gen: This is a 74-year-old male in no acute distress VS: reviewed HEENT: Head is atraumatic, normocephalic. Pupils equal, round. Sclerae is anicteric. NECK: Supple. No JVD. LUNGS: Decreased air exchange bilaterally. No intercostal retractions. HEART: Regular rate and rhythm. Soft systolic ejection murmur 1/6 at the base. ABDOMEN: Soft No tenderness. EXTREMITIES: No pedal edema. No calf tenderness. NEUROLOGICAL: Patient is awake, alert and oriented x3. Assessment: AICD discharge Nonsustained ventricular tachycardia Elevated troponin secondary to AICD discharge, myocardial injury without ischemia Ischemic cardiomyopathy Coronary artery disease with previous 5 vessel CABG in 2006 followed by cardiac catheterization with blockages found not to be amenable to angioplasty Paroxysmal atrial fibrillation with history of previous ablations probably due to atrial fibrillation Diabetes mellitus type 2 Thrombocytopenia Tobacco use and dependence History of TIA Plan: Continue patient's home cardiac medications Start patient on amiodarone 400 mg oral twice daily Continue patient on aspirin 81 mg daily Obtain 2-D echocardiogram and Doppler study report Plan is to maximize medical treatment and patient will follow-up with his sifter and miller at [place] Obtain records from [facility] in [place] and [facility] Further recommendations to follow based upon clinical course Plan to monitor patient for another 24 hours and discharge home tomorrow. Nurse practitioner note has been reviewed, I agree with documented findings and plan of care. Patient was seen and examined. Objective - Vital Signs Vital signs: Vital Signs Temp 98.1 F 02/12/24 00:00 Pulse 66 02/12/24 04:00 Resp 16 02/12/24 04:00 BP 124/73 02/12/24 04:00 Pulse Ox 98 02/12/24 04:00 FiO2 Intake & Output 02/11/24 02/12/24 02/12/24 18:59 06:59 18:59 Intake Total 282.049 204.171 Output Total 800 300 Balance -517.951 -95.829 Weight 91.626 kg 90 kg Intake: Intake, IV Titration 282.049 204.171 Amount Amiodarone 360 mg In 200.000 Dextrose 5% in Water 200 ml @ 1 MG/MIN 33.333 mls/ hr IV .Q6H [facility] Rx#: [id number] Amiodarone 450 mg In 204.171 Dextrose 5% in Water 250 ml @ 0.5 MG/MIN 16.667 mls/hr IV .Q15H [facility] Rx#: [id number] Heparin Sod,Pork in 0.45% 82.049 NaCl 25,000 unit In 0.45 % NaCl 1 250ml.bag @ 10. 92 UNITS/KG/HR 10.006 mls /hr IV .Q24H [facility] Rx#: [id number] Output: Urine 800 300 - Labs CBC & Chem 7: 02/12/24 07:35 02/12/24 07:35 Labs: Abnormal Lab Results - Last 24 Hours (Table) 02/11/24 02/11/24 02/11/24 Range/Units 08:50 08:50 12:05 RBC (4.30-5.90) m/uL Hgb (13.0-17.5) gm/dL MCV (80.0-100.0) fL Plt Count (150-450) k/uL Lymphocytes # (1.0-4.8) k/uL APTT 35.1 H (22.0-30.0) sec Chloride (98-107) mmol/L POC Glucose (mg/dL) (70-110) mg/dL Troponin I 0.892 H* 0.694 H* (0.000-0.034) ng/mL Total Protein (6.3-8.2) g/dL Albumin (3.5-5.0) g/dL 02/11/24 02/11/24 02/11/24 Range/Units 12:11 16:51 20:25 RBC (4.30-5.90) m/uL Hgb (13.0-17.5) gm/dL MCV (80.0-100.0) fL Plt Count (150-450) k/uL Lymphocytes # (1.0-4.8) k/uL APTT (22.0-30.0) sec Chloride (98-107) mmol/L POC Glucose (mg/dL) 150 H 130 H 191 H (70-110) mg/dL Troponin I (0.000-0.034) ng/mL Total Protein (6.3-8.2) g/dL Albumin (3.5-5.0) g/dL 02/12/24 02/12/24 02/12/24 Range/Units 06:10 07:35 07:35 RBC 3.73 L (4.30-5.90) m/uL Hgb 12.8 L (13.0-17.5) gm/dL MCV 108.9 H (80.0-100.0) fL Plt Count 85 L (150-450) k/uL Lymphocytes # 0.9 L (1.0-4.8) k/uL APTT (22.0-30.0) sec Chloride 108 H (98-107) mmol/L POC Glucose (mg/dL) 115 H (70-110) mg/dL Troponin I (0.000-0.034) ng/mL Total Protein 5.6 L (6.3-8.2) g/dL Albumin 3.3 L (3.5-5.0) g/dL
[2024-02-12 11:17] LABS: Glucose,Whole Blood 115 mg/dL (70-110)
--- NOTE | 2024-02-12 14:25 | P.PN ---
Subjective Progress Note Date: 02/12/24 Hospital Course: 74-year-old male with history of CAD status post CABG and AICD placement, isch emic cardiomyopathy, paroxysmal atrial fibrillation with history of previous ablations, type 2 diabetes, nicotine dependence presenting after AICD discharge. Patient was tachycardic on initial presentation, blood pressure stable. Initial labs showed WBC of 11, platelet 90, potassium 3.9, magnesium 1.9, troponin up trended all the way to 0.892. Seen by cardiology. Echocardiogram showed LVEF 30 to 35%, moderate mitral regurgitation, mild pulmonary hypertension. Patient was initially started on amiodarone drip and heparin drip. Now transition to oral amnio and Eliquis. Subjective: Patient seen and examined at bedside. No acute events overnight. Eager to go home. Denies any further chest pain. Pertinent positives and negatives as discussed above, a complete review of systems was performed and all other systems are negative. Vitals Signs Reviewed. General: Nontoxic, no distress, appears at stated age Derm: Warm, dry Head: Atraumatic, normocephalic, symmetric Eyes: EOMI, no lid lag, anicteric sclera Mouth: No lip lesion, mucus membranes moist Cardiovascular: S1S2 reg, no murmur Lungs: CTA bilateral, no rhonchi, no rales, no accessory muscle use Abdominal: Soft, nontender to palpation, no guarding, no appreciable organomegaly Ext: No gross muscle atrophy, no edema, no contractures Neuro: CN II-XI grossly intact, no focal neuro deficits Psych: Alert, oriented, appropriate affect Data Reviewed Today: Pertinent Labs: WBC 6.2, hemoglobin 12.8, platelet 85, potassium 3.6, creatinine 0.79, magnesium 1.9, blood sugars range between 1 15-1 91. Imaging: Echocardiogram shows LVEF 30 to 35%, moderate mitral regurgitation and mild pulmonary hypertension Assessment and Plan: Active: AICD discharges Ischemic cardiomyopathy, EF 30 to 35% History of CAD status post CABG Hypertension Dyslipidemia -Cardiology note reviewed, patient started on amiodarone 400 twice daily, he toby drip discontinued, on Eliquis 5 mg twice daily -Continue aspirin 81 mg daily, atorvastatin 40 mg nightly, Coreg 25 twice daily, Farxiga 10, eplerenone 25 daily, Lasix oral 40 daily, Entresto 24-26 twice daily, Ranexa thousand twice daily -Continue on telemetry -Discussed management with cardiology, recommending 1 more day of observation before discharge Type 2 diabetes -Continue Levemir 17 units daily -Sliding scale insulin, monitor for hypoglycemia Chronic: Hypothyroidism BPH GERD DVT ppx: Eliquis Code status: Full code Anticipated discharge place: Pending clinical course Anticipated discharge time: Pending clinical course Objective - Vital Signs Vital signs: Vital Signs Temp 97.9 F 02/12/24 08:00 Pulse 61 02/12/24 12:00 Resp 16 02/12/24 08:00 BP 100/45 02/12/24 12:00 Pulse Ox 96 02/12/24 12:00 FiO2 Intake & Output 02/11/24 02/12/24 02/12/24 18:59 06:59 18:59 Intake Total 282.049 204.171 600 Output Total 800 300 Balance -517.951 -95.829 600 Weight 91.626 kg 90 kg Intake: Intake, IV Titration 282.049 204.171 Amount Amiodarone 360 mg In 200.000 Dextrose 5% in Water 200 ml @ 1 MG/MIN 33.333 mls/ hr IV .Q6H [facility] Rx#: [id number] Amiodarone 450 mg In 204.171 Dextrose 5% in Water 250 ml @ 0.5 MG/MIN 16.667 mls/hr IV .Q15H [facility] Rx#: [id number] Heparin Sod,Pork in 0.45% 82.049 NaCl 25,000 unit In 0.45 % NaCl 1 250ml.bag @ 10. 92 UNITS/KG/HR 10.006 mls /hr IV .Q24H [facility] Rx#: [id number] Oral 600 Output: Urine 800 300 - Labs CBC & Chem 7: 02/12/24 07:35 02/12/24 07:35 Labs: Abnormal Lab Results - Last 24 Hours (Table) 02/11/24 02/11/24 02/12/24 Range/Units 16:51 20:25 06:10 RBC (4.30-5.90) m/uL Hgb (13.0-17.5) gm/dL MCV (80.0-100.0) fL Plt Count (150-450) k/uL Lymphocytes # (1.0-4.8) k/uL Chloride (98-107) mmol/L POC Glucose (mg/dL) 130 H 191 H 115 H (70-110) mg/dL Hemoglobin A1c (<=6.0) % Total Protein (6.3-8.2) g/dL Albumin (3.5-5.0) g/dL 02/12/24 02/12/24 02/12/24 Range/Units 07:35 07:35 07:35 RBC 3.73 L (4.30-5.90) m/uL Hgb 12.8 L (13.0-17.5) gm/dL MCV 108.9 H (80.0-100.0) fL Plt Count 85 L (150-450) k/uL Lymphocytes # 0.9 L (1.0-4.8) k/uL Chloride 108 H (98-107) mmol/L POC Glucose (mg/dL) (70-110) mg/dL Hemoglobin A1c 6.2 H (<=6.0) % Total Protein 5.6 L (6.3-8.2) g/dL Albumin 3.3 L (3.5-5.0) g/dL 02/12/24 Range/Units 11:15 RBC (4.30-5.90) m/uL Hgb (13.0-17.5) gm/dL MCV (80.0-100.0) fL Plt Count (150-450) k/uL Lymphocytes # (1.0-4.8) k/uL Chloride (98-107) mmol/L POC Glucose (mg/dL) 115 H (70-110) mg/dL Hemoglobin A1c (<=6.0) % Total Protein (6.3-8.2) g/dL Albumin (3.5-5.0) g/dL
[2024-02-12 16:53] LABS: Glucose,Whole Blood 132 mg/dL (70-110)
[2024-02-12 20:31] LABS: Glucose,Whole Blood 135 mg/dL (70-110)
[2024-02-13 06:16] LABS: Glucose,Whole Blood 123 mg/dL (70-110)
[2024-02-13 11:28] LABS: Glucose,Whole Blood 135 mg/dL (70-110)
[2024-02-13 11:48] VITALS: BP 113/62; PULSE 66; TEMP 98
--- NOTE | 2024-02-13 13:58 | P.DS ---
Providers Date of admission: 02/11/24 03:12 Expected date of discharge: 02/13/24 Attending physician: Tammi Summers MD Consults: 02/11/24 02:13 Consult Physician Urgent Consulting Provider: [facility] Consult Reason/Comments: Vtach runs, heart palpatations, defibrillator fired Do you want consulting provider notified?: Yes Primary care physician: Aracelis Lantigua MD Hospital Course: Discharge Diagnosis: AICD discharges Elevated troponin, myocardial injury in the setting of ICD Discharges leukocytosis, reactive Ischemic cardiomyopathy, EF 30 to 35% History of CAD status post CABG Hypertension Dyslipidemia Type 2 diabetes Hospital Course: 74-year-old male with history of CAD status post CABG and AICD placement, ischemic cardiomyopathy, paroxysmal atrial fibrillation with history of previous ablations, type 2 diabetes, nicotine dependence presenting after AICD discharge. Patient was tachycardic on initial presentation, blood pressure stable. In itial labs showed WBC of 11, platelet 90, potassium 3.9, magnesium 1.9, troponin up trended all the way to 0.892. Seen by cardiology. Echocardiogram showed LVEF 30 to 35%, moderate mitral regurgitation, mild pulmonary hypertension. Patient was initially started on amiodarone drip and heparin drip. Now transitioned to oral amnio and Eliquis. He will follow-up further at the [facility]. Continue oral amiodarone and Eliquis at the time of discharge. Patient seen and examined at bedside. Vital signs reviewed and stable. General: Nontoxic, no distress, appears at stated age Derm: Warm, dry Head: Atraumatic, normocephalic, symmetric Eyes: EOMI, no lid lag, anicteric sclera Mouth: No lip lesion, mucus membranes moist Cardiovascular: S1S2 reg, no murmur Lungs: CTA bilateral, no rhonchi, no rales, no accessory muscle use Abdominal: Soft, nontender to palpation, no guarding, no appreciable organomegaly Ext: No gross muscle atrophy, no edema, no contractures Neuro: CN II-XI grossly intact, no focal neuro deficits Psych: Alert, oriented, appropriate affect A total of 33 minutes of time were spent preparing this complex discharge summary. Patient was discharged on 02/13/2024 at 1157. Patient Condition at Discharge: Stable Plan - Discharge Summary Discharge Rx Participant: No New Discharge Prescriptions: New Aspirin 81 mg PO DAILY #90 tab Amiodarone [Cordarone] 400 mg PO BID #90 tab Continue Apixaban [Eliquis] 5 mg PO BID Folic Acid 1 mg PO DAILY metFORMIN HCL 1,000 mg PO BID Sacubitril/Valsartan [Entresto 24 mg-26 mg Tablet] 1 tab PO BID Rosuvastatin Calcium 20 mg PO HS Levothyroxine Sodium 125 mcg PO DAILY Eplerenone 25 mg PO DAILY DULoxetine HCL [Cymbalta] 60 mg PO DAILY Nitroglycerin Sl Tabs [Nitrostat] 0.4 mg SUBLINGUAL Q5M PRN PRN Reason: Chest Pain Lidocaine 5% Patch [Lidoderm 5% Patch] 1 patch TOPICAL DAILY Insulin Glargine,Hum.rec.anlog [Lantus Solostar Pen] 17 units SQ DAILY Calcium Carbonate 500 mg PO DAILY Alfuzosin HCl [Alfuzosin HCl ER] 10 mg PO HS Ranolazine [Ranexa] 1,000 mg PO BID Pantoprazole [Protonix] 40 mg PO DAILY carvediloL 25 mg PO BID Melatonin 3 mg PO HS Empagliflozin [Jardiance] 25 mg PO DAILY Cholecalciferol (Vitamin D3) [Vitamin D3 (50 Mcg = 2000 Iu)] 50 mcg PO DAILY Loperamide [Imodium] 2 mg PO DAILY PRN PRN Reason: Diarrhea Furosemide [Lasix] 40 mg PO DAILY Alendronate Sodium [Fosamax] 70 mg PO WEEKLY Discontinued Furosemide [Lasix] 40 mg PO DAILY PRN PRN Reason: weight gain Discharge Medication List Apixaban [Eliquis] 5 mg PO BID 02/02/24 [History] Cholecalciferol (Vitamin D3) [Vitamin D3 (50 Mcg = 2000 Iu)] 50 mcg PO DAILY 02/02/24 [History] DULoxetine HCL [Cymbalta] 60 mg PO DAILY 02/02/24 [History] Empagliflozin [Jardiance] 25 mg PO DAILY 02/02/24 [History] Eplerenone 25 mg PO DAILY 02/02/24 [History] Folic Acid 1 mg PO DAILY 02/02/24 [History] Levothyroxine Sodium 125 mcg PO DAILY 02/02/24 [History] Melatonin 3 mg PO HS 02/02/24 [History] Pantoprazole [Protonix] 40 mg PO DAILY 02/02/24 [History] Rosuvastatin Calcium 20 mg PO HS 02/02/24 [History] Sacubitril/Valsartan [Entresto 24 mg-26 mg Tablet] 1 tab PO BID 02/02/24 [History] carvediloL 25 mg PO BID 02/02/24 [History] metFORMIN HCL 1,000 mg PO BID 02/02/24 [History] Alendronate Sodium [Fosamax] 70 mg PO WEEKLY 02/11/24 [History] Alfuzosin HCl [Alfuzosin HCl ER] 10 mg PO HS 02/11/24 [History] Calcium Carbonate 500 mg PO DAILY 02/11/24 [History] Furosemide [Lasix] 40 mg PO DAILY 02/11/24 [History] Insulin Glargine,Hum.rec.anlog [Lantus Solostar Pen] 17 units SQ DAILY 02/11/24 [History] Lidocaine 5% Patch [Lidoderm 5% Patch] 1 patch TOPICAL DAILY 02/11/24 [History] Loperamide [Imodium] 2 mg PO DAILY PRN 02/11/24 [History] Nitroglycerin Sl Tabs [Nitrostat] 0.4 mg SUBLINGUAL Q5M PRN 02/11/24 [History] Ranolazine [Ranexa] 1,000 mg PO BID 02/11/24 [History] Amiodarone [Cordarone] 400 mg PO BID #90 tab 02/13/24 [Rx] Aspirin 81 mg PO DAILY #90 tab 02/13/24 [Rx] Follow up Appointment(s)/Referral(s): Aracelis Lantigua MD [Primary Care Provider] - 1 Week (Office to call with appointment date and time.) Patient Instructions/Handouts: Implantable Cardioverter Defibrillator (DC) Activity/Diet/Wound Care/Special Instructions: Please continue amiodarone till you see [facility]. Please see your PCP as well. Discharge Disposition: HOME SELF-CARE
--- NOTE | 2024-02-13 15:12 | P.PN ---
Subjective Progress Note Date: 02/13/24 Reason for Consult (text): V. tach runs, heart palpitations, defibrillator fired History of present illness: This is a 74-year-old male patient follows with the [facility] field support engineer in [place] with past medical history of coronary artery disease with previous 5 vessel CABG done in 2006 at [facility] with generator change done 1 year ago, history of ablations. Patient gives history of a cardiac catheterization following his CABG where he was found to have blockages but was not conducive to angioplasty. This was approximately 7 to 8 years ago. Patient states that yesterday he was feeling dizzy all day and his heart was pounding. Last evening he took the dog out like he normally would do but he had sudden dizziness that was significantly worse. He was going to the steps on the porch and received 3 shocks from his AICD. By the time he got to the chair on the porch, he received another 2 shocks. He states he has had discharge from the AICD in the past but it was many years ago. He denies having any cough, fever, wheezing. He denies any blood in his urine or stool. No stroke or seizure. He does have history of a TIA in the past. No PND. He is a smoker of cigars but "not much". 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 He states he drinks 1 cup of coffee per day. EKG: Dual-chamber paced rhythm with runs of nonsustained ventricular tachycardia Chest x-ray: Cardiomegaly. Pulmonary vessels top normal in caliber. Minimal bibasilar atelectasis. Laboratory studies: WBC 11, hemoglobin 15.2, platelet count 90. Troponin 0.067, 0.892, 0.694. Sodium 136, potassium 3.9, creatinine 0.96. Home cardiac medications: Eliquis 5 mg twice daily, Coreg 25 mg twice daily, Jardiance 25 mg daily, eplerenone 25 mg daily, Lasix 40 mg daily and 40 mg as needed, Nitrostat as needed, Ranexa 1000 mg twice daily, rosuvastatin 20 mg at bedtime, Entresto 24-26 mg twice daily, patient also on levothyroxine 125 mcg daily. 02/11 Patient is seen today in follow-up on the cardiac stepdown unit. Patient denies any chest pain, dizziness, lightheadedness and no palpitations. His defibrillator has not discharged since admission. No V. tach on monitor. Patient states the echocardiogram was done this morning, report is currently pending. We are waiting for records from [place] and [facility] which have not arrived. Blood pressure 124/73, heart rate 66, pulse ox 98% on room air. Repeat blood work reveals hemoglobin 12.8. Platelet count 85. Creatinine 0.79. 02/12 Patient has had no further arrhythmias and no shocks from his AICD. He denies having any chest pain or shortness of breath. Regarding amiodarone. He states he was on it in the past and a lower dose and stopped it about 3 months ago. He is currently on amiodarone 400 mg twice daily. Blood pressure 113/62, heart rate 66, pulse ox 98% on room air. It has been made clear to the patient that he needs to follow-up with his field support engineer at [place] in the next week. Echocardiogram reveals EF of 30 to 35%. Moderate mitral regurgitation, mild pulmonary hypertension. Physical examination: Gen: This is a 74-year-old male in no acute distress VS: reviewed HEENT: Head is atraumatic, normocephalic. Pupils equal, round. Sclerae is anicteric. NECK: Supple. No JVD. LUNGS: Decreased air exchange bilaterally. No intercostal retractions. HEART: Regular rate and rhythm. Soft systolic ejection murmur 1/6 at the base. ABDOMEN: Soft No tenderness. EXTREMITIES: No pedal edema. No calf tenderness. NEUROLOGICAL: Patient is awake, alert and oriented x3. Assessment: AICD discharge Nonsustained ventricular tachycardia Elevated troponin secondary to AICD discharge, myocardial injury without ischemia Ischemic cardiomyopathy Coronary artery disease with previous 5 vessel CABG in 2006 followed by cardiac catheterization with blockages found not to be amenable to angioplasty Paroxysmal atrial fibrillation with history of previous ablations probably due to atrial fibrillation Diabetes mellitus type 2 Thrombocytopenia Tobacco use and dependence History of TIA Plan: Continue patient's home cardiac medications Continue patient on amiodarone 400 mg oral twice daily until patient is seen by his field support engineer Continue patient on aspirin 81 mg daily Plan is to maximize medical treatment and patient will follow-up with his field support engineer at [place] in the next 1 week Patient is cleared from cardiology for discharge. Nurse practitioner note has been reviewed, I agree with documented findings and plan of care. Patient was seen and examined. Objective - Vital Signs Vital signs: Vital Signs Temp 98.4 F 02/12/24 20:00 Pulse 61 02/13/24 06:00 Resp 16 02/13/24 06:00 BP 115/61 02/13/24 06:00 Pulse Ox 95 02/13/24 06:00 FiO2 Intake & Output 02/12/24 02/13/24 02/13/24 18:59 06:59 18:59 Intake Total 600 540 358 Balance 600 540 358 Intake: Oral 600 540 358 Other: Voiding Method Toilet # Voids 0 # Bowel Movements 0 - Labs CBC & Chem 7: 02/12/24 07:35 02/12/24 07:35 Labs: Abnormal Lab Results - Last 24 Hours (Table) 02/12/24 02/12/24 02/13/24 Range/Units 16:52 20:30 06:14 POC Glucose (mg/dL) 132 H 135 H 123 H (70-110) mg/dL 02/13/24 Range/Units 11:27 POC Glucose (mg/dL) 135 H (70-110) mg/dL
== END 2024-02-13 14:29 | disposition home or self-care (01) | DRG 309 ==
LOC: EC 01:52 → 3SCARD 03:12
PROVIDERS: ADMIT Internal Medicine; ATTEND Internal Medicine
DX: I47.20 Ventricular tachycardia, unspecified (principal); I5A Non-ischemic myocardial injury (non-traumatic); D69.6 Thrombocytopenia, unspecified; I27.20 Pulmonary hypertension, unspecified; Z95.1 Presence of aortocoronary bypass graft; E11.9 Type 2 diabetes mellitus without complications; D72.829 Elevated white blood cell count, unspecified; I48.0 Paroxysmal atrial fibrillation; I10 Essential (primary) hypertension; E03.9 Hypothyroidism, unspecified; I34.0 Nonrheumatic mitral (valve) insufficiency; Z79.4 Long term (current) use of insulin; I25.5 Ischemic cardiomyopathy; I25.10 Atherosclerotic heart disease of native coronary artery without angina pectoris; E78.5 Hyperlipidemia, unspecified; K21.9 Gastro-esophageal reflux disease without esophagitis; N40.0 Benign prostatic hyperplasia without lower urinary tract symptoms; M54.30 Sciatica, unspecified side; F17.290 Nicotine dependence, other tobacco product, uncomplicated; Z71.6 Tobacco abuse counseling; Z79.83 Long term (current) use of bisphosphonates; Z79.01 Long term (current) use of anticoagulants; Z79.84 Long term (current) use of oral hypoglycemic drugs; Z79.890 Hormone replacement therapy; Z79.899 Other long term (current) drug therapy; Z95.810 Presence of automatic (implantable) cardiac defibrillator; Z86.73 Personal history of transient ischemic attack (TIA), and cerebral infarction without residual deficits
CPT/HCPCS: 36415; 71045; 80053; 82607; 82747; 83036; 83735; 84484; 85025; 85610; 85730; 93005; 93306; 96365; 96366; 96368; 99291

== ENCOUNTER 2024-07-21 14:18 | Observation (INO) | payer OTHER, MEDICARE ==
--- NOTE | 2024-07-21 14:55 | CT ---
EXAMINATION TYPE: CT brain cspine wo con CT DLP: 1495 mGycm, Automated exposure control for dose reduction was used. DATE OF EXAM: 07/21/2024 2:42 PM COMPARISON: None.. CLINICAL INDICATION:Male, 74 years old with history of fall/pain/+LOC; Fall and LOC TECHNIQUE: Brain: Multiple axial CT images of the brain were obtained without IV contrast. Cspine: Axial CT images from the skull base to the inferior aspect of T2 we obtained without intraven ous contrast. Coronal and sagittal reformatted images were also reviewed. FINDINGS: Brain: Extra-axial spaces: No abnormal extra-axial fluid collections. Ventricular system: Within normal limits Cerebral parenchyma: Cerebral atrophy. No acute intraparenchymal hemorrhage or mass effect. The deleon -white junction is well differentiated. Scattered hypoattenuating areas are seen within the periventr icular white matter. Cerebellum: Unremarkable. Mass effect: No evidence of midline shift. Intracranial vasculature: Atherosclerotic calcifications of the intracranial vessels. Soft tissues: Normal. Calvarium/osseous structures: No depressed skull fracture. Paranasal sinuses and mastoid air cells: The mastoid air cells are clear. Right maxillary sinus 1.4 c m likely mucous retention cyst. Remaining paranasal sinuses are clear. Visualized orbits: Orbital contents are intact. Cervical spine: Fracture: None. Osseous structures: Multilevel degenerative disc disease changes with endplate spurring and disc oste ophyte complex's. Vertebral alignment: Degenerative grade 1 anterolisthesis of C3 on C4 and C4 on C5. Spinal canal/Neural Foramina: Disc osteophyte complexes at C3-C4, C5-C6 and C6-C7 with at least mild spinal canal stenosis. Facet joint uncovertebral joint arthropathy scattered throughout the cervical spine with varying degrees of neural foraminal stenosis. Neck soft tissues: Prevertebral soft tissues are within normal limits. Other: The airway is patent. The lung apices are clear. Bilateral carotid bulb calcifications. Median sternotomy wires. Cardiac pacemaking leads. IMPRESSION: 1. No acute intracranial process. 2. Nonspecific white matter changes, likely secondary to chronic small vessel ischemic disease. 3. No evidence of cervical spine fracture. 4. Moderate multilevel degenerative disc disease and facet arthropathy. [facility], , 07/21/2024 2:52 PM
--- NOTE | 2024-07-21 14:56 | ED ---
General Adult HPI - General Chief complaint: Fall Stated complaint: fall Time Seen by Provider: 07/21/24 14:19 Source: patient, EMS, RN notes reviewed Mode of arrival: EMS - History of Present Illness Initial comments: 74-year-old male presents to the emergency department for evaluation of fall. Patient reports that he has been feeling dizzy throughout the day today causing him to fall. He notes that he hit his head on the floor and this caused him to lose consciousness. He does report that he is on blood thinners. Patient does report continued lightheadedness. He denies any significant pain. He denies any preceding chest pain, shortness of breath. Denies any recent illness. - Related Data Home Medications Medication Instructions Recorded Confirmed Apixaban [Eliquis] 5 mg PO BID 02/02/24 07/21/24 Cholecalciferol (Vitamin D3) 50 mcg PO DAILY 02/02/24 07/21/24 [Vitamin D3 (50 Mcg = 2000 Iu)] DULoxetine HCL [Cymbalta] 60 mg PO DAILY 02/02/24 07/21/24 Empagliflozin [Jardiance] 25 mg PO DAILY 02/02/24 07/21/24 Eplerenone 12.5 mg PO DAILY 02/02/24 07/21/24 Folic Acid 1 mg PO DAILY 02/02/24 07/21/24 Levothyroxine Sodium 125 mcg PO DAILY 02/02/24 07/21/24 Melatonin 3 mg PO HS 02/02/24 07/21/24 Pantoprazole [Protonix] 40 mg PO AC-SUPPER 02/02/24 07/21/24 Rosuvastatin Calcium 20 mg PO HS 02/02/24 07/21/24 Alfuzosin HCl [Alfuzosin HCl ER] 10 mg PO HS 02/11/24 07/21/24 Calcium Carbonate 500 mg PO DAILY 02/11/24 07/21/24 Furosemide [Lasix] 40 mg PO DAILY 02/11/24 07/21/24 Insulin Glargine,Hum.rec.anlog 16 units SQ DAILY 02/11/24 07/21/24 [Lantus Solostar Pen] Loperamide [Imodium] 2 mg PO DAILY PRN 02/11/24 07/21/24 Nitroglycerin Sl Tabs [Nitrostat] 0.4 mg SUBLINGUAL Q5M PRN 02/11/24 07/21/24 Ranolazine [Ranexa] 1,000 mg PO BID 02/11/24 07/21/24 Albuterol Inhaler [Ventolin Hfa 2 puff INHALATION RT-Q6H PRN 07/21/24 07/21/24 Inhaler] lisinopriL [Zestril] 2.5 mg PO DAILY 07/21/24 07/21/24 Previous Rx's Medication Instructions Recorded Aspirin 81 mg PO DAILY #90 tab 02/13/24 Amiodarone [Cordarone] 200 mg PO DAILY #0 tab 07/23/24 Metoprolol Succinate (ER) [Toprol 25 mg PO BID #60 tab 07/23/24 XL] Allergies Allergy/AdvReac Type Severity Reaction Status Date / Time spironolactone AdvReac per [facility] - Verified 07/21/24 14:25 [From Aldactone] unknown Review of Systems ROS Statement: Those systems with pertinent positive or pertinent negative responses have been documented in the HPI. ROS Other: All systems not noted in ROS Statement are negative. Past Medical History Past Medical History: Atrial Fibrillation, Chest Pain / Angina Additional Past Medical History / Comment(s): type 2 DM, sciatica History of Any Multi-Drug Resistant Organisms: None Reported Past Surgical History: Heart Catheterization Type of Cardiac Device: AICD Device Placement Date:: 11/18/2022 Past Psychological History: No Psychological Hx Reported Smoking Status: Unknown if ever smoked Past Alcohol Use History: None Reported Past Drug Use History: None Reported - Past Family History Sister(s) Family Medical History: Cancer Father Family Medical History: Cancer General Exam Limitations: no limitations General appearance: alert, in no apparent distress Head exam: Present: atraumatic, normocephalic, normal inspection Eye exam: Present: normal appearance, PERRL, EOMI. Absent: scleral icterus, conjunctival injection, periorbital swelling ENT exam: Present: normal exam, mucous membranes moist Neck exam: Present: normal inspection, full ROM. Absent: tenderness, meningismus, lymphadenopathy Respiratory exam: Present: normal lung sounds bilaterally. Absent: respiratory distress, wheezes, rales, rhonchi, stridor Cardiovascular Exam: Present: regular rate, normal rhythm, normal heart sounds. Absent: systolic murmur, diastolic murmur, rubs, gallop, clicks GI/Abdominal exam: Present: soft, normal bowel sounds. Absent: distended, tenderness, guarding, rebound, rigid Extremities exam: Present: normal inspection, full ROM, normal capillary refill. Absent: tenderness, pedal edema, joint swelling, calf tenderness Back exam: Present: normal inspection Neurological exam: Present: alert, oriented X3, CN II-XII intact, abnormal gait Expanded Patient oriented to: Present: person, place, time Speech: Present: fluid speech Motor strength exam: RUE: 5, LUE: 5, RLE: 5, LLE: 3 Eye Response: (4) open spontaneously Motor Response: (6) obeys commands Verbal Response: (5) oriented Psychiatric exam: Present: normal affect, normal mood Skin exam: Present: warm, dry, intact, normal color. Absent: rash Course Vital Signs 07/21/24 07/21/24 07/21/24 14:20 16:15 16:24 Temperature 98.4 F 97.4 F L Pulse Rate 82 59 L Pulse Rate [ 59 L Sitting Pulse Oximetery] Pulse Rate [ 59 L Standing Pulse Oximetery] Pulse Rate [ 59 L Supine Pulse Oximetery] Respiratory 16 20 Rate Blood Pressure 118/68 115/65 Blood Pressure 93/55 [Right Arm Sitting] Blood Pressure 94/52 [Right Arm Standing] Blood Pressure 127/62 [Right Arm Supine] O2 Sat by Pulse 95 99 Oximetry 07/21/24 07/21/24 07/21/24 20:32 21:08 23:38 Temperature 97.7 F Pulse Rate 59 L 61 60 Pulse Rate [ Sitting Pulse Oximetery] Pulse Rate [ Standing Pulse Oximetery] Pulse Rate [ Supine Pulse Oximetery] Respiratory 16 17 18 Rate Blood Pressure 142/72 134/74 133/66 Blood Pressure [Right Arm Sitting] Blood Pressure [Right Arm Standing] Blood Pressure [Right Arm Supine] O2 Sat by Pulse 95 98 97 Oximetry Medical Decision Making - Medical Decision Making Was pt. sent in by a medical professional or institution (, PA, ELECTRONIC ENGINEERING DRAFTSPERSON, urgent care, hospital, or correction...) When possible be specific @ -No Did you speak to anyone other than the patient for history (EMS, parent, family, police, friend...)? What history was obtained from this source @ -No Did you review nursing and triage notes (agree or disagree)? Why? @ -I reviewed and agree with nursing and triage notes Were old charts reviewed (outside hosp., previous admission, EMS record, old EKG, old radiological studies, urgent care reports/EKG's, correction records)? Report findings @ -No old charts were reviewed Differential Diagnosis (chest pain, altered mental status, abdominal pain women, abdominal pain men, vaginal bleeding, weakness, fever, dyspnea, syncope, headache, dizziness, GI bleed, back pain, seizure, CVA, palpatations, mental health, musculoskeletal)? @ -Fall, head injury, intracranial hemorrhage, cspine fracture, this list is not all inclusive EKG interpreted by me (3pts min.). @ -EKG at 1445 shows ventricular paced rhythm with a rate of 60 X-rays interpreted by me (1pt min.). @ -Chest XR shows mild pulmonary vascular congestion XR lumbar spine shows no evidence of acute fracture CT interpreted by me (1pt min.). @ -CT brain and C-spine shows no evidence of acute intracranial process, no evidence of C-spine fracture U/S interpreted by me (1pt. min.). @ -None done What testing was considered but not performed or refused? (CT, X-rays, U/S, labs)? Why? @ -None What meds were considered but not given or refused? Why? @ -None Did you discuss the management of the patient with other professionals (professionals i.e. , PA, ELECTRONIC ENGINEERING DRAFTSPERSON, lab, RT, psych nurse, outreach and education social worker, glove cleaner, teacher, light armored vehicle officer, case checker)? Give summary @ -Management discussed with [facility] who is accepting of the admission Was smoking cessation discussed for >3mins.? @ -No Was critical care preformed (if so, how long)? @ -No Were there social determinants of health that impacted care today? How? (Homelessness, low income, unemployed, alcoholism, drug addiction, transportation, low edu. Level, literacy, decrease access to med. care, half-way, rehab)? @ -No Was there de-escalation of care discussed even if they declined (Discuss DNR or withdrawal of care, Hospice)? DNR status @ -No What co-morbidities impacted this encounter? (DM, HTN, Smoking, COPD, CAD, Cancer, CVA, ARF, Chemo, Hep., AIDS, mental health diagnosis, sleep apnea, morbid obesity)? @ -None Was patient admitted / discharged? Hospital course, mention meds given and route, prescriptions, significant lab abnormalities, going to OR and other pertinent info. @ -Patient presented to the emergency department for evaluation of fall with head injury. Code coag was called as the patient hit head on blood thinners. Patient underwent CT scan of brain and C-spine revealing no acute intracranial process, no evidence of C-spine fracture or traumatic malalignment. Laboratory studies and EKG were obtained as the patient reports feeling lightheaded. CBC significant for hemoglobin of 11.8 patient does have history of macrocytic anemia, normal coagulation studies, CMP shows lactic acidosis with lactic acid of 2.4, negative troponin. Orthostatic vital signs obtained which were positive. Patient was provided a liter of fluids in the emergency department. Neurology was paged but did not return call. Patient will be admitted with neurology consultation. Case was then discussed with [facility] who is accepting of the admission. Case discussed with Dr. Curiel Undiagnosed new problem with uncertain prognosis? @ -No Drug Therapy requiring intensive monitoring for toxicity (Heparin, Nitro, Insulin, Cardizem)? @ -No Were any procedures done? @ -No Diagnosis/symptom? @ -fall, head injury, leg weakness Acute, or Chronic, or Acute on Chronic? @ -Acute Uncomplicated (without systemic symptoms) or Complicated (systemic symptoms)? @ -Uncomplicated Side effects of treatment? @ -No Exacerbation, Progression, or Severe Exacerbation? @ -No Poses a threat to life or bodily function? How? (Chest pain, [place], [place], pneumonia, PE, COPD, DKA, ARF, appy, cholecystitis, CVA, Diverticulitis, Homicidal, Suicidal, threat to staff... and all critical care pts) @ -yes - Lab Data Result diagrams: 07/21/24 14:43 07/21/24 14:43 Lab Results 07/21/24 07/21/24 07/21/24 Range/Units 14:43 14:43 14:43 WBC 8.0 (3.8-10.6) k/uL RBC 3.56 L (4.30-5.90) m/uL Hgb 11.8 L (13.0-17.5) gm/dL Hct 37.7 L (39.0-53.0) % MCV 105.8 H (80.0-100.0) fL MCH 33.2 (25.0-35.0) pg MCHC 31.4 (31.0-37.0) g/dL RDW 14.1 (11.5-15.5) % Plt Count 117 L (150-450) k/uL MPV 10.0 Neutrophils % 87 % Lymphocytes % 7 % Monocytes % 4 % Eosinophils % 2 % Basophils % 0 % Neutrophils # 7.0 (1.3-7.7) k/uL Lymphocytes # 0.5 L (1.0-4.8) k/uL Monocytes # 0.3 (0-1.0) k/uL Eosinophils # 0.1 (0-0.7) k/uL Basophils # 0.0 (0-0.2) k/uL Hypochromasia Slight Macrocytosis Moderate PT 11.8 (10.0-12.5) sec INR 1.1 (<1.2) APTT 26.7 (22.0-30.0) sec Sodium 141 (137-145) mmol/L Potassium 4.3 (3.5-5.1) mmol/L Chloride 109 H (98-107) mmol/L Carbon Dioxide 28 (22-30) mmol/L Anion Gap 4 mmol/L BUN 15 (9-20) mg/dL Creatinine 1.08 (0.66-1.25) mg/dL Est GFR (CKD-EPI)AfAm 77 (>60 ml/min/1.73 sqM) Est GFR (CKD-EPI)NonAf 67 (>60 ml/min/1.73 sqM) Glucose 116 H (74-99) mg/dL Lactic Ac Sepsis Rflx Plasma Lactic Acid Martínez (0.7-2.0) mmol/L Calcium 8.0 L (8.4-10.2) mg/dL Magnesium 1.9 (1.6-2.3) mg/dL Total Bilirubin 0.5 (0.2-1.3) mg/dL AST 24 (17-59) U/L ALT 24 (4-49) U/L Alkaline Phosphatase 55 (38-126) U/L Troponin I (0.000-0.034) ng/mL Total Protein 5.9 L (6.3-8.2) g/dL Albumin 3.5 (3.5-5.0) g/dL Urine Color Urine Appearance (Clear) Urine pH (5.0-8.0) Ur Specific Roosevelt (1.001-1.035) Urine Protein (Negative) Urine Glucose (UA) (Negative) Urine Ketones (Negative) Urine Blood (Negative) Urine Nitrite (Negative) Urine Bilirubin (Negative) Urine Urobilinogen (<2.0) mg/dL Ur Leukocyte Esterase (Negative) 07/21/24 07/21/24 07/21/24 Range/Units 14:43 14:43 15:06 WBC (3.8-10.6) k/uL RBC (4.30-5.90) m/uL Hgb (13.0-17.5) gm/dL Hct (39.0-53.0) % MCV (80.0-100.0) fL MCH (25.0-35.0) pg MCHC (31.0-37.0) g/dL RDW (11.5-15.5) % Plt Count (150-450) k/uL MPV Neutrophils % % Lymphocytes % % Monocytes % % Eosinophils % % Basophils % % Neutrophils # (1.3-7.7) k/uL Lymphocytes # (1.0-4.8) k/uL Monocytes # (0-1.0) k/uL Eosinophils # (0-0.7) k/uL Basophils # (0-0.2) k/uL Hypochromasia Macrocytosis PT (10.0-12.5) sec INR (<1.2) APTT (22.0-30.0) sec Sodium (137-145) mmol/L Potassium (3.5-5.1) mmol/L Chloride (98-107) mmol/L Carbon Dioxide (22-30) mmol/L Anion Gap mmol/L BUN (9-20) mg/dL Creatinine (0.66-1.25) mg/dL Est GFR (CKD-EPI)AfAm (>60 ml/min/1.73 sqM) Est GFR (CKD-EPI)NonAf (>60 ml/min/1.73 sqM) Glucose (74-99) mg/dL Lactic Ac Sepsis Rflx Y Plasma Lactic Acid Martínez 2.4 H* (0.7-2.0) mmol/L Calcium (8.4-10.2) mg/dL Magnesium (1.6-2.3) mg/dL Total Bilirubin (0.2-1.3) mg/dL AST (17-59) U/L ALT (4-49) U/L Alkaline Phosphatase (38-126) U/L Troponin I <0.012 (0.000-0.034) ng/mL Total Protein (6.3-8.2) g/dL Albumin (3.5-5.0) g/dL Urine Color Urine Appearance (Clear) Urine pH (5.0-8.0) Ur Specific Roosevelt (1.001-1.035) Urine Protein (Negative) Urine Glucose (UA) (Negative) Urine Ketones (Negative) Urine Blood (Negative) Urine Nitrite (Negative) Urine Bilirubin (Negative) Urine Urobilinogen (<2.0) mg/dL Ur Leukocyte Esterase (Negative) 07/21/24 07/21/24 07/21/24 Range/Units 17:11 17:42 20:21 WBC (3.8-10.6) k/uL RBC (4.30-5.90) m/uL Hgb (13.0-17.5) gm/dL Hct (39.0-53.0) % MCV (80.0-100.0) fL MCH (25.0-35.0) pg MCHC (31.0-37.0) g/dL RDW (11.5-15.5) % Plt Count (150-450) k/uL MPV Neutrophils % % Lymphocytes % % Monocytes % % Eosinophils % % Basophils % % Neutrophils # (1.3-7.7) k/uL Lymphocytes # (1.0-4.8) k/uL Monocytes # (0-1.0) k/uL Eosinophils # (0-0.7) k/uL Basophils # (0-0.2) k/uL Hypochromasia Macrocytosis PT (10.0-12.5) sec INR (<1.2) APTT (22.0-30.0) sec Sodium (137-145) mmol/L Potassium (3.5-5.1) mmol/L Chloride (98-107) mmol/L Carbon Dioxide (22-30) mmol/L Anion Gap mmol/L BUN (9-20) mg/dL Creatinine (0.66-1.25) mg/dL Est GFR (CKD-EPI)AfAm (>60 ml/min/1.73 sqM) Est GFR (CKD-EPI)NonAf (>60 ml/min/1.73 sqM) Glucose (74-99) mg/dL Lactic Ac Sepsis Rflx Y Plasma Lactic Acid Martínez 2.3 H* 1.3 (0.7-2.0) mmol/L Calcium (8.4-10.2) mg/dL Magnesium (1.6-2.3) mg/dL Total Bilirubin (0.2-1.3) mg/dL AST (17-59) U/L ALT (4-49) U/L Alkaline Phosphatase (38-126) U/L Troponin I (0.000-0.034) ng/mL Total Protein (6.3-8.2) g/dL Albumin (3.5-5.0) g/dL Urine Color Urine Appearance (Clear) Urine pH (5.0-8.0) Ur Specific Roosevelt (1.001-1.035) Urine Protein (Negative) Urine Glucose (UA) (Negative) Urine Ketones (Negative) Urine Blood (Negative) Urine Nitrite (Negative) Urine Bilirubin (Negative) Urine Urobilinogen (<2.0) mg/dL Ur Leukocyte Esterase (Negative) 07/21/24 Range/Units 21:00 WBC (3.8-10.6) k/uL RBC (4.30-5.90) m/uL Hgb (13.0-17.5) gm/dL Hct (39.0-53.0) % MCV (80.0-100.0) fL MCH (25.0-35.0) pg MCHC (31.0-37.0) g/dL RDW (11.5-15.5) % Plt Count (150-450) k/uL MPV Neutrophils % % Lymphocytes % % Monocytes % % Eosinophils % % Basophils % % Neutrophils # (1.3-7.7) k/uL Lymphocytes # (1.0-4.8) k/uL Monocytes # (0-1.0) k/uL Eosinophils # (0-0.7) k/uL Basophils # (0-0.2) k/uL Hypochromasia Macrocytosis PT (10.0-12.5) sec INR (<1.2) APTT (22.0-30.0) sec Sodium (137-145) mmol/L Potassium (3.5-5.1) mmol/L Chloride (98-107) mmol/L Carbon Dioxide (22-30) mmol/L Anion Gap mmol/L BUN (9-20) mg/dL Creatinine (0.66-1.25) mg/dL Est GFR (CKD-EPI)AfAm (>60 ml/min/1.73 sqM) Est GFR (CKD-EPI)NonAf (>60 ml/min/1.73 sqM) Glucose (74-99) mg/dL Lactic Ac Sepsis Rflx Plasma Lactic Acid Martínez (0.7-2.0) mmol/L Calcium (8.4-10.2) mg/dL Magnesium (1.6-2.3) mg/dL Total Bilirubin (0.2-1.3) mg/dL AST (17-59) U/L ALT (4-49) U/L Alkaline Phosphatase (38-126) U/L Troponin I (0.000-0.034) ng/mL Total Protein (6.3-8.2) g/dL Albumin (3.5-5.0) g/dL Urine Color Light Yellow Urine Appearance Clear (Clear) Urine pH 5.5 (5.0-8.0) Ur Specific Roosevelt 1.020 (1.001-1.035) Urine Protein Negative (Negative) Urine Glucose (UA) 4+ H (Negative) Urine Ketones Negative (Negative) Urine Blood Negative (Negative) Urine Nitrite Negative (Negative) Urine Bilirubin Negative (Negative) Urine Urobilinogen <2.0 (<2.0) mg/dL Ur Leukocyte Esterase Negative (Negative) Disposition Clinical Impression: Fall, Syncope, Left leg weakness Disposition: ADMITTED IP TO THIS HOSP Condition: Stable Is patient prescribed a controlled substance at d/c from ED?: No
[2024-07-21 15:01] LABS: Basophils % (A) 0 %; Eosinophils # (A) 0.1 k/uL (0-0.7); Eosinophils % (A) 2 %; HCT 37.7 % (39.0-53.0); HGB 11.8 gm/dL (13.0-17.5); Hypochromasia Slight; INR 1.1 (<1.2); Lymphocytes # (A) 0.5 k/uL (1.0-4.8); Lymphocytes % (A) 7 %; MCH 33.2 pg (25.0-35.0); MCHC 31.4 g/dL (31.0-37.0); MCV 105.8 fL (80.0-100.0); Macrocytosis Moderate; Monocytes # (A) 0.3 k/uL (0-1.0); Monocytes % (A) 4 %; Neutrophils % (A) 87 %; Partial Thromboplastin Time 26.7 sec (22.0-30.0); Platelet Count 117 k/uL (150-450); Prothrombin Time 11.8 sec (10.0-12.5); RBC 3.56 m/uL (4.30-5.90); RDW 14.1 % (11.5-15.5)
[2024-07-21 15:10] LABS: ALT 24 U/L (4-49); AST 24 U/L (17-59); African American GFR (CKD) 77 (>60 ml/min/1.73 sqM); Albumin 3.5 g/dL (3.5-5.0); Alkaline Phosphatase 55 U/L (38-126); Anion Gap 4 mmol/L; Blood Urea Nitrogen 15 mg/dL (9-20); Carbon Dioxide 28 mmol/L (22-30); Chloride 109 mmol/L (98-107); Glucose 116 mg/dL (74-99); Magnesium 1.9 mg/dL (1.6-2.3); Non-African American GFR(CKD) 67 (>60 ml/min/1.73 sqM); Potassium 4.3 mmol/L (3.5-5.1); Sodium 141 mmol/L (137-145); Total Bilirubin 0.5 mg/dL (0.2-1.3); Total Protein 5.9 g/dL (6.3-8.2)
--- NOTE | 2024-07-21 16:01 | XR ---
EXAMINATION TYPE: XR lumbar spine 2 or 3V DATE OF EXAM: 07/21/2024 3:53 PM COMPARISON: None CLINICAL INDICATION: Male, 74 years old with history of fall; TECHNIQUE: XR lumbar spine 2 or 3V - Frontal, lateral and coned in L5-S1 lateral views of the spine. FINDINGS: No evidence of any acute osseous pathology. No evidence of loss of vertebral body height i s seen. There is normal alignment of the lumbar vertebral bodies. Scattered disc space narrowing. Mul tilevel marginal osteophyte formation throughout the visualized spine. There is facet joint arthropat hy throughout the spine. Scattered at least mild neural foraminal stenosis. Atherosclerosis of the ar terial vasculature. IMPRESSION: 1. No acute fracture. 2. Moderate multilevel disc degeneration. [facility], , 07/21/2024 3:59 PM
--- NOTE | 2024-07-21 16:02 | XR ---
EXAMINATION TYPE: XR chest 2V DATE OF EXAM: 07/21/2024 3:53 PM COMPARISON: Chest radiographs from 02/11/2024 CLINICAL INDICATION: Male, 74 years old with history of Weakness; [facility] TECHNIQUE: XR chest 2V Frontal and lateral views of the chest. FINDINGS: Lungs/Pleura: There is no evidence of pleural effusion, focal consolidation, or pneumothorax. Pulmonary vascularity: Pulmonary vascular congestion. Heart/mediastinum: Cardiomediastinal silhouette is enlarged and stable. Atherosclerotic calcificatio ns are seen in the aorta. 4 lead cardiac conduction device overlying the left hemithorax with lead ti ps projecting over the right ventricle, right atrium and coronary sinus. Musculoskeletal: No acute osseous pathology. IMPRESSION: Cardiomegaly and mild pulmonary vascular congestion. Correlate with BNP for congestive heart failure. [facility], , 07/21/2024 4:00 PM
[2024-07-21] MEDS: SODIUM CHLORIDE 0.9% 1,000 ML IV STA (17:03)
[2024-07-21] MEDS ORDERED: ACETAMINOPHEN TAB 325 MG TAB PO PRN (21:10)
[2024-07-21] MEDS ORDERED: NALOXONE 0.4 MG/ML 1 ML VIAL IV PRN (21:10)
[2024-07-21 21:12] LABS: Appearance,Urine Clear (Clear); Bilirubin,Urine Negative (Negative); Blood,Urine Negative (Negative); Color,Urine Light Yellow; Glucose,Urine (UA) 4+ (Negative); Ketones,Urine Negative (Negative); Leukocyte Esterase,Urine Negative (Negative); Nitrite,Urine Negative (Negative); PH, Urine 5.5 (5.0-8.0); Protein,Urine Negative (Negative); Urobilinogen,Urine <2.0 mg/dL (<2.0)
[2024-07-21] MEDS: ASPIRIN 81 MG PO STA (21:16)
[2024-07-21] MEDS: HYDROmorphone 0.5 MG/0.5 ML SYRINGE IVP PRN (21:17)
[2024-07-22] MEDS ORDERED: ALBUTEROL NEBULIZED 2.5 MG/3 ML INHALATION PRN (06:26)
[2024-07-22] MEDS ORDERED: LOPERAMIDE 2 MG CAP PO PRN (06:26)
[2024-07-22] MEDS ORDERED: NITROGLYCERIN SL TABS 0.4 MG TAB SUBLINGUAL PRN (06:26)
[2024-07-22] MEDS ORDERED: DEXTROSE 50% SYRINGE 50 ML IVP PRN ×2 (06:27)
[2024-07-22 06:38] LABS: Glucose,Whole Blood 92 mg/dL (70-110)
[2024-07-22] MEDS: INSULIN ASPART (NovoLOG) 100 UNIT/ML VIAL SQ SCH (06:45)
[2024-07-22] MEDS: carvediloL 12.5 MG TAB PO SCH (06:52)
[2024-07-22] MEDS: LEVOTHYROXINE 125 MCG TAB PO SCH (06:53)
[2024-07-22] MEDS: INSULIN DETEMIR (LEVEMIR) 100 UNIT/ML SYR SQ SCH (06:53)
[2024-07-22] MEDS: CHOLECALCIFEROL 25 MCG (1000 IU) TABLET PO SCH (07:44)
[2024-07-22] MEDS: DAPAGLIFLOZIN PROPANEDIOL 10 MG TABLET PO SCH (07:44)
[2024-07-22] MEDS: AMIODARONE 200 MG TAB PO SCH (07:44)
[2024-07-22] MEDS: FOLIC ACID 1 MG TAB PO SCH (07:45)
[2024-07-22] MEDS: DULoxetine HCL 60 MG CAPSULE.DR PO SCH (07:45)
[2024-07-22] MEDS: RANOLAZINE 500 MG TAB.ER.12H PO SCH (07:45)
[2024-07-22] MEDS: APIXABAN 5 MG TAB PO SCH (07:46)
[2024-07-22] MEDS: ASPIRIN 81 MG PO SCH (07:46)
[2024-07-22] MEDS: CALCIUM CARBONATE 500 MG CHEWABLE PO SCH (07:46)
[2024-07-22] MEDS: Eplerenone 25 MG Tablet PO SCH (07:47)
--- NOTE | 2024-07-22 08:34 | P.CNNES ---
History of Present Illness Consult date: 07/22/24 Reason for Consult: syncope, left > right lkeg weakness Chief complaint: "I fell last night, and my left leg is weaker than my right." History of Present Illness: Mr. Webster is a 74-year-old left-handed white male with history of atrial fibrillation for which she takes Eliquis 5 mg twice daily, he also has a history of chest pain and angina as well as diabetes and sciatica. The patient was admitted to [facility] yesterday July 21, 2024 after feeling "dizzy" during the day. He cannot be very specific as to the type of dizziness he was suffering but he says it felt different than his usual dizziness which is lightheadedness on arising. Patient did not note any weakness prior to his fall but he did fall and hit his head and may have lost consciousness. CT of the brain was negative last night from the emergency room. However subsequent to his fall he noted some mild left leg weakness, and this morning he is noting some additional right leg weakness. He states he does have a history of scia belen for some time. His orthostatics were positive in the emergency room with a decline in blood pressure from 1 27-93 systolic over 83-55 diastolic on standing. With a loss of consciousness and the patient denies any tongue biting or bowel or bladder incontinence. The patient states he cannot undergo an MRI of the brain secondary to severe claustrophobia. Neurology has been consulted for further management recommendations. Review of Systems Constitutional: Reports as per HPI Eyes: bilateral blurred vision Ears, nose, mouth and throat: Reports as per HPI Cardiovascular: Reports as per HPI Respiratory: Reports cough Gastrointestinal: Reports diarrhea Genitourinary: Reports urinary hesitancy Integumentary: Reports unusual bruising Neurological: Reports as per HPI Hematologic/Lymphatic: Reports easy bleeding Past Medical History Past Medical History: Atrial Fibrillation, Chest Pain / Angina Additional Past Medical History / Comment(s): type 2 DM, sciatica, pacemaker/defibrillator, CABG History of Any Multi-Drug Resistant Organisms: None Reported Past Surgical History: Heart Catheterization Type of Cardiac Device: AICD Device Placement Date:: 11/18/2022 Past Psychological History: No Psychological Hx Reported Smoking Status: Unknown if ever smoked Past Alcohol Use History: None Reported Past Drug Use History: None Reported Additional Drug Use History / Comment(s): Cigars - Past Family History Sister(s) Family Medical History: Cancer Father Family Medical History: Cancer Medications and Allergies Home Medications Medication Instructions Recorded Confirmed Type Apixaban [Eliquis] 5 mg PO BID 02/02/24 07/21/24 History Cholecalciferol (Vitamin D3) 50 mcg PO DAILY 02/02/24 07/21/24 History [Vitamin D3 (50 Mcg = 2000 Iu)] DULoxetine HCL [Cymbalta] 60 mg PO DAILY 02/02/24 07/21/24 History Empagliflozin [Jardiance] 25 mg PO DAILY 02/02/24 07/21/24 History Eplerenone 12.5 mg PO DAILY 02/02/24 07/21/24 History Folic Acid 1 mg PO DAILY 02/02/24 07/21/24 History Levothyroxine Sodium 125 mcg PO DAILY 02/02/24 07/21/24 History Melatonin 3 mg PO HS 02/02/24 07/21/24 History Pantoprazole [Protonix] 40 mg PO AC-SUPPER 02/02/24 07/21/24 History Rosuvastatin Calcium 20 mg PO HS 02/02/24 07/21/24 History carvediloL 12.5 mg PO BID 02/02/24 07/21/24 History Alfuzosin HCl [Alfuzosin HCl ER] 10 mg PO HS 02/11/24 07/21/24 History Calcium Carbonate 500 mg PO DAILY 02/11/24 07/21/24 History Furosemide [Lasix] 40 mg PO DAILY 02/11/24 07/21/24 History Insulin Glargine,Hum.rec.anlog 16 units SQ DAILY 02/11/24 07/21/24 History [Lantus Solostar Pen] Loperamide [Imodium] 2 mg PO DAILY PRN 02/11/24 07/21/24 History Nitroglycerin Sl Tabs [Nitrostat] 0.4 mg SUBLINGUAL Q5M PRN 02/11/24 07/21/24 History Ranolazine [Ranexa] 1,000 mg PO BID 02/11/24 07/21/24 History Aspirin 81 mg PO DAILY #90 tab 02/13/24 07/21/24 Rx Albuterol Inhaler [Ventolin Hfa 2 puff INHALATION RT-Q6H PRN 07/21/24 07/21/24 History Inhaler] Amiodarone [Cordarone] 200 mg PO BID 07/21/24 07/21/24 History lisinopriL [Zestril] 2.5 mg PO DAILY 07/21/24 07/21/24 History Allergies Allergy/AdvReac Type Severity Reaction Status Date / Time spironolactone AdvReac per [facility] - Verified 07/21/24 14:25 [From Aldactone] unknown Physical Examination - Vital Signs Vital Signs: Vital Signs Temp Pulse Pulse Pulse Pulse Pulse Resp 07/22/24 06:38 97.9 F 61 16 07/22/24 00:02 97.7 F 80 16 07/21/24 23:38 97.7 F 60 18 07/21/24 21:08 61 17 07/21/24 20:32 59 L 16 07/21/24 16:24 59 L 59 L 59 L 07/21/24 16:15 97.4 F L 59 L 20 07/21/24 14:20 98.4 F 82 16 BP BP BP BP BP Pulse Ox 07/22/24 06:38 144/68 98 07/22/24 00:02 145/71 98 07/21/24 23:38 133/66 97 07/21/24 21:08 134/74 98 07/21/24 20:32 142/72 95 07/21/24 16:24 93/55 94/52 127/62 07/21/24 16:15 115/65 99 07/21/24 14:20 118/68 95 Intake and Output 07/21/24 07/22/24 07/22/24 22:59 06:59 14:59 Other: # Voids 0 Weight 81.647 kg - Constitutional General appearance: average body habitus - EENT EENT: PERRL - Respiratory Respiratory: chest non-tender, lungs clear, normal breath sounds - Cardiovascular Cardiovascular: regular rate, no murmurs Extremities: no peripheral edema bilaterally, no clubbing, cyanosis, no inflamma tion - Gastrointestinal Gastrointestinal: normoactive bowel sounds, soft, non-tender - Integumentary Integumentary: normal - Neurologic Cranial nerve examination: PERRL, EOMI, VFF, V1/V2/V3 grossly intact, face symmetric Sensorimotor examination: intact Motor examination - right side: 4/5: hip flexors, 5/5: biceps, triceps, wrist f lexion, wrist extension, vertical boring mill operator, toe extension (EHL), plantarflexion Motor examination - left side: 3/5: hip flexors, 4/5: toe extension (EHL), plantarflexion, 5/5: biceps, triceps, wrist flexion, wrist extension, vertical boring mill operator Detailed sensory examination: intact Reflex and gait examination: intact Results A noncontrast CT of the head was read as negative with some evidence of small vessel disease last night and a noncontrast CT of the lumbar spine reveals multilevel degenerative joint disease as well as facet arthropathy. - Laboratory Findings CBC and BMP: 07/21/24 14:43 07/21/24 14:43 Abnormal Lab Findings: Abnormal Labs 07/21/24 07/21/24 07/21/24 14:43 14:43 14:43 RBC 3.56 L Hgb 11.8 L Hct 37.7 L MCV 105.8 H Plt Count 117 L Lymphocytes # 0.5 L Chloride 109 H Glucose 116 H Plasma Lactic Acid Martínez 2.4 H* Calcium 8.0 L Total Protein 5.9 L Urine Glucose (UA) 07/21/24 07/21/24 17:11 21:00 RBC Hgb Hct MCV Plt Count Lymphocytes # Chloride Glucose Plasma Lactic Acid Martínez 2.3 H* Calcium Total Protein Urine Glucose (UA) 4+ H Assessment and Plan Assessment: Mr. Araujo is a 74-year-old left handed white male with history of atrial fibrillation as well as angina, diabetes, and sciatica. Patient suffered a mechanical fall last night and subsequently noted some left-sided leg weakness. This morning he has some left greater than right leg weakness. He has no other focal neurologic deficits to suggest acute infarct. His CT scan of the head was negative last night, though he does use Eliquis for atrial fibrillation. Plan: 1. I will not order an electroencephalogram at this time as I do not believe the patient suffered a seizure. He notes a history of presyncopal episodes in the past and had positive orthostatics last night. I believe is most likely a vagal vagal episode or an orthostatic episode. 2. The patient reports an intolerance to MRI because of claustrophobia. Therefore, I will order a noncontrast CT of the head to be performed tomorrow on July 23 to look for any evidence of cerebral infarction. If this is found I will order echocardiogram and further workup. 3. Neurology will continue to follow the patient in house and make further recommendations as needed.
[2024-07-22 12:27] LABS: Glucose,Whole Blood 92 mg/dL (70-110)
--- NOTE | 2024-07-22 12:33 | P.HPIM ---
History of Present Illness H&P Date: 07/22/24 Pleasant 74-year-old male with medical history significant for atrial fibrillation, hypertension, type 2 diabetes mellitus, coronary artery disease with prior CABG, pacemaker/defibrillator. Patient comes into the hospital secondary to a syncopal episode, was feeling dizzy and lightheaded and than he fell. Patient does report hitting his head and likely loosing consciousness. Patient was subsequently reporting some pain in his leg and also lower back which she does have chronic back pain at baseline. Lumbar spine x-ray reveals no acute fracture there is moderate multilevel disc degeneration. He is also reporting some left leg weakness although does have known history of sciatica. His head cervical spine CT reveals no acute intracranial process, nonspecific white matter changes, likely secondary to small vessel ischemic disease. No evidence of cervical spine fracture, moderate multilevel degenerative disc disease and facet arthropathy. Patient has a known ejection fraction of 30 to 35%. His chest x-ray reveals cardiomegaly and mild pulmonary vascular congestion. Correlate with BNP for congestive heart failure. He did have lactic acidosis on admission. Urinalysis is negative for infection, hemoglobin 11.8, renal function within normal limits. Was given a 1 L fluid bolus his la ctic acid has normalized. His lisinopril discontinued with decreased in the dosing of the amiodarone. Is currently running in the 140s systolic. Positive orthostatic blood pressures on admission down into the 90s systolic while standing. EKG reveals V paced rhythm. He was admitted to the hospital on observation with a cardiology and neurology consultation. REVIEW OF SYSTEMS: CONSTITUTIONAL: No fever, no malaise, no fatigue. HEENT: No recent visual problems or hearing problems. Denied any sore throat. CARDIOVASCULAR: No chest pain, orthopnea, PND, no palpitations, no syncope. PULMONARY: No shortness of breath, no cough, no hemoptysis. GASTROINTESTINAL: No diarrhea, no nausea, no vomiting, no abdominal pain. NEUROLOGICAL: No headaches, no weakness, no numbness. HEMATOLOGICAL: Denies any bleeding or petechiae. GENITOURINARY: Denies any burning micturition, frequency, or urgency. MUSCULOSKELETAL/RHEUMATOLOGICAL: Denies any joint pain, swelling, or any muscle pain. ENDOCRINE: Denies any polyuria or polydipsia. The rest of the 14-point review of systems is negative. PHYSICAL EXAMINATION: GENERAL: The patient is alert and oriented x3, not in any acute distress. Well d eveloped, well nourished. HEENT: Pupils are round and equally reacting to light. EOMI. No scleral icterus. No conjunctival pallor. Normocephalic, atraumatic. No pharyngeal erythema. No thyromegaly. CARDIOVASCULAR: S1 and S2 present. No murmurs, rubs, or gallops. PULMONARY: Chest is clear to auscultation, no wheezing or crackles. ABDOMEN: Soft, nontender, nondistended, normoactive bowel sounds. No palpable organomegaly. MUSCULOSKELETAL: No joint swelling or deformity. EXTREMITIES: No cyanosis, clubbing, or pedal edema. NEUROLOGICAL: Gross neurological examination did not reveal any focal deficits. SKIN: No rashes. Assessment plan Syncope and fall secondary to postural hypotension lisinopril has been held Generalized weakness post fall with left leg weakness. Known history of sciati ca. Ischemic cardiomyopathy ef 30-35% History of coronary artery disease with prior CABG/AICD placement Diabetes Mellitus type 2 Hypertension Dyslipidemia Paroxysmal atrial fibrillation with prior cardiac ablation GI prophylaxis DVT prophylaxis anticoagulated with eliquis which has been resumed Full code Plan Neurology following recommending to repeat brain CT tomorrow as patient states unable to tolerate MRI due to claustrophobia Pending cardiology consultation Consider AICD interrogation Hold lisinopril Further recommendations pending The impression and plan of care has been dictated by Juju Allen Nurse Practitioner as directed. Dr. David MD I have performed a history and physical examination and medical decision making of this patient, discussed the same with the dictator, and agree with the dictators assessment and plan as written, documented as a scribe. Based on total visit time, I have performed more than 50% of this visit. Past Medical History Past Medical History: Atrial Fibrillation, Chest Pain / Angina Additional Past Medical History / Comment(s): type 2 DM, sciatica, pacemaker/defibrillator, CABG History of Any Multi-Drug Resistant Organisms: None Reported Past Surgical History: Heart Catheterization Type of Cardiac Device: AICD Device Placement Date:: 11/18/2022 Past Psychological History: No Psychological Hx Reported Smoking Status: Unknown if ever smoked Past Alcohol Use History: None Reported Past Drug Use History: None Reported Additional Drug Use History / Comment(s): Cigars - Past Family History Sister(s) Family Medical History: Cancer Father Family Medical History: Cancer Medications and Allergies Home Medications Medication Instructions Recorded Confirmed Type Apixaban [Eliquis] 5 mg PO BID 02/02/24 07/21/24 History Cholecalciferol (Vitamin D3) 50 mcg PO DAILY 02/02/24 07/21/24 History [Vitamin D3 (50 Mcg = 2000 Iu)] DULoxetine HCL [Cymbalta] 60 mg PO DAILY 02/02/24 07/21/24 History Empagliflozin [Jardiance] 25 mg PO DAILY 02/02/24 07/21/24 History Eplerenone 12.5 mg PO DAILY 02/02/24 07/21/24 History Folic Acid 1 mg PO DAILY 02/02/24 07/21/24 History Levothyroxine Sodium 125 mcg PO DAILY 02/02/24 07/21/24 History Melatonin 3 mg PO HS 02/02/24 07/21/24 History Pantoprazole [Protonix] 40 mg PO AC-SUPPER 02/02/24 07/21/24 History Rosuvastatin Calcium 20 mg PO HS 02/02/24 07/21/24 History carvediloL 12.5 mg PO BID 02/02/24 07/21/24 History Alfuzosin HCl [Alfuzosin HCl ER] 10 mg PO HS 02/11/24 07/21/24 History Calcium Carbonate 500 mg PO DAILY 02/11/24 07/21/24 History Furosemide [Lasix] 40 mg PO DAILY 02/11/24 07/21/24 History Insulin Glargine,Hum.rec.anlog 16 units SQ DAILY 02/11/24 07/21/24 History [Lantus Solostar Pen] Loperamide [Imodium] 2 mg PO DAILY PRN 02/11/24 07/21/24 History Nitroglycerin Sl Tabs [Nitrostat] 0.4 mg SUBLINGUAL Q5M PRN 02/11/24 07/21/24 History Ranolazine [Ranexa] 1,000 mg PO BID 02/11/24 07/21/24 History Aspirin 81 mg PO DAILY #90 tab 02/13/24 07/21/24 Rx Albuterol Inhaler [Ventolin Hfa 2 puff INHALATION RT-Q6H PRN 07/21/24 07/21/24 History Inhaler] Amiodarone [Cordarone] 200 mg PO BID 07/21/24 07/21/24 History lisinopriL [Zestril] 2.5 mg PO DAILY 07/21/24 07/21/24 History Allergies Allergy/AdvReac Type Severity Reaction Status Date / Time spironolactone [facility]Reac [facility] - Verified 07/21/24 14:25 [From Aldactone] unknown Physical Exam Vitals: Vital Signs Temp Pulse Pulse Pulse Pulse Pulse Resp 07/22/24 06:38 97.9 F 61 16 07/22/24 00:02 97.7 F 80 16 07/21/24 23:38 97.7 F 60 18 07/21/24 21:08 61 17 07/21/24 20:32 59 L 16 07/21/24 16:24 59 L 59 L 59 L 07/21/24 16:15 97.4 F L 59 L 20 07/21/24 14:20 98.4 F 82 16 BP BP BP BP BP Pulse Ox 07/22/24 06:38 144/68 98 07/22/24 00:02 145/71 98 07/21/24 23:38 133/66 97 07/21/24 21:08 134/74 98 07/21/24 20:32 142/72 95 07/21/24 16:24 93/55 94/52 127/62 07/21/24 16:15 115/65 99 07/21/24 14:20 118/68 95 Intake and Output 07/21/24 07/22/24 07/22/24 22:59 06:59 14:59 Intake Total 118 Balance 118 Intake: Oral 118 Other: # Voids 0 Weight 81.647 kg Results CBC & Chem 7: 07/21/24 14:43 07/21/24 14:43 Labs: Abnormal Lab Results - Last 24 Hours (Table) 07/21/24 07/21/24 07/21/24 Range/Units 14:43 14:43 14:43 RBC 3.56 L (4.30-5.90) m/uL Hgb 11.8 L (13.0-17.5) gm/dL Hct 37.7 L (39.0-53.0) % MCV 105.8 H (80.0-100.0) fL Plt Count 117 L (150-450) k/uL Lymphocytes # 0.5 L (1.0-4.8) k/uL Chloride 109 H (98-107) mmol/L Glucose 116 H (74-99) mg/dL Plasma Lactic Acid Martínez 2.4 H* (0.7-2.0) mmol/L Calcium 8.0 L (8.4-10.2) mg/dL Total Protein 5.9 L (6.3-8.2) g/dL Urine Glucose (UA) (Negative) 07/21/24 07/21/24 Range/Units 17:11 21:00 RBC (4.30-5.90) m/uL Hgb (13.0-17.5) gm/dL Hct (39.0-53.0) % MCV (80.0-100.0) fL Plt Count (150-450) k/uL Lymphocytes # (1.0-4.8) k/uL Chloride (98-107) mmol/L Glucose (74-99) mg/dL Plasma Lactic Acid Martínez 2.3 H* (0.7-2.0) mmol/L Calcium (8.4-10.2) mg/dL Total Protein (6.3-8.2) g/dL Urine Glucose (UA) 4+ H (Negative) Assessment and Plan Time with Patient: Less than 30
--- NOTE | 2024-07-22 13:49 | P.CRDCN ---
History of Present Illness Consult date: 07/22/24 Requesting physician: Jenni Cdae Reason for Consult (text): syncope, loss of consciousness, patient with pacemaker Chief complaint: dizziness, falls History of present illness: This is a pleasant 74-year-old male patient who follows with cardiology at the [facility] in [place] with past medical history of CAD with prior 5 vessel CABG, subsequent cardiac catheterization 7 or 8 years ago found to have blockages not amenable to angioplasty, cardiomyopathy, status post AICD, hospitalized here in January after sustaining 5 discharges from his device for which she has been on amiodarone that was recently decreased from 400 mg twice daily to 200 mg twice daily. Presented to the hospital with complaints of dizziness causing falls, had an episode of falling where he hit his head and caused loss of consciousness that was brief. Denies discharges from his device. He has had no chest discomfort. Vital signs showed positive orthostatic hypotension. Diagnostics -EKG: A-fib with V pacing -Chest x-ray: Cardiomegaly and mild pulmonary vascular congestion -Lumbar spine x-ray: No acute fracture, moderate multilevel disc degeneration -CT scan of the brain and cervical spine: No acute intracranial process, nonspecific white matter changes, likely secondary to chronic small vessel ischemic disease, no evidence of cervical spine fracture, moderate multilevel degenerative disc disease and facet arthropathy -Laboratory studies: Hemoglobin 11.7, platelet count 117, sodium 141, potassium 4.3, BUN 15, creatinine 1.08, troponin negative x 1 -Home cardiac medications: Lisinopril 2.5 mg p.o. daily, carvedilol 12.5 mg p.o. twice daily, aspirin 81 mg daily, eplerenone 12.5 mg p.o. daily, rosuvastatin 20 mg p.o. nightly, ranolazine 1000 mg p.o. twice daily, Lasix 40 mg p.o. daily, Jardiance 25 mg p.o. daily, Eliquis 5 mg p.o. twice daily and amiodarone 200 mg p.o. twice daily. -Prior stress test: None available -Echocardiogram: January 2024 dilated LV with severely impaired LV function and EF around 30 to 35%, moderate MR and mild pulmonary hypertension -Cardiac catheterization: None available Review Of Systems: At the time of my exam: CONSTITUTIONAL: Denies fever or chills. HEENT: Denies blurred vision, vision changes. CARDIOVASCULAR: Denies chest pain. Denies orthopnea. Denies PND. Denies pa lpitations, dizziness, or syncope. RESPIRATORY: Denies shortness of breath, wheezing, or cough. Denies hemoptysis. GASTROINTESTINAL: Denies abdominal pain. Denies nausea or vomiting. Denies bleeding. HEMATOLOGIC: Denies bleeding disorders. GENITOURINARY: Denies hematuria. SKIN: Denies puritis. Denies rash. PHYSICAL EXAMINATION: This is a 74-year-old male in no apparent distress at the time of my examination. VITAL SIGNS: Reviewed. HEENT: Head is atraumatic, normocephalic. Pupils are equal, round. Sclerae anicteric. Conjunctivae are clear. Mucous membranes of the mouth are moist. Neck is supple. There is no elevated jugular venous pressure. No carotid bruit is heard. CHEST EXAMINATION: Clear to auscultation bilaterally. No wheezes rales or rhonchi. Respirations even and nonlabored. HEART EXAMINATION: Heart regular, positive S1 and S2. No S3. No S4. Systolic murmur ABDOMEN: Soft, nontender. Bowel sounds are heard. No organomegaly noted. EXTREMITIES: 2+ peripheral pulses with no evidence of peripheral edema and no calf tenderness noted. NEUROLOGIC EXAMINATION: Patient is awake, alert and oriented x3. Assessment: 1. Dizziness and falls likely secondary to orthostatic hypotension 2. Ischemic cardiomyopathy status post AICD 3. CAD with prior CABG 4. Atrial fibrillation, persistent, anticoagulated on Eliquis Plan: From cardiology's perspective we will decrease amiodarone to 200 mg p.o. daily. We will interrogate the device. Will switch the patient to metoprolol sullivan ccinate. Continue to follow the patient and provide further recommendations accordingly depending on his response. Thank you kindly for this consultation. Nurse practitioner note has been reviewed, I agree with documented findings and plan of care. Patient was seen and examined. Past Medical History Past Medical History: Atrial Fibrillation, Chest Pain / Angina Additional Past Medical History / Comment(s): type 2 DM, sciatica, pacemaker/defibrillator, CABG History of Any Multi-Drug Resistant Organisms: None Reported Past Surgical History: Heart Catheterization Type of Cardiac Device: AICD Device Placement Date:: 11/18/2022 Past Psychological History: No Psychological Hx Reported Smoking Status: Unknown if ever smoked Past Alcohol Use History: None Reported Past Drug Use History: None Reported Additional Drug Use History / Comment(s): Cigars - Past Family History Sister(s) Family Medical History: Cancer Father Family Medical History: Cancer Medications and Allergies Home Medications Medication Instructions Recorded Confirmed Type Apixaban [Eliquis] 5 mg PO BID 02/02/24 07/21/24 History Cholecalciferol (Vitamin D3) 50 mcg PO DAILY 02/02/24 07/21/24 History [Vitamin D3 (50 Mcg = 2000 Iu)] DULoxetine HCL [Cymbalta] 60 mg PO DAILY 02/02/24 07/21/24 History Empagliflozin [Jardiance] 25 mg PO DAILY 02/02/24 07/21/24 History Eplerenone 12.5 mg PO DAILY 02/02/24 07/21/24 History Folic Acid 1 mg PO DAILY 02/02/24 07/21/24 History Levothyroxine Sodium 125 mcg PO DAILY 02/02/24 07/21/24 History Melatonin 3 mg PO HS 02/02/24 07/21/24 History Pantoprazole [Protonix] 40 mg PO AC-SUPPER 02/02/24 07/21/24 History Rosuvastatin Calcium 20 mg PO HS 02/02/24 07/21/24 History carvediloL 12.5 mg PO BID 02/02/24 07/21/24 History Alfuzosin HCl [Alfuzosin HCl ER] 10 mg PO HS 02/11/24 07/21/24 History Calcium Carbonate 500 mg PO DAILY 02/11/24 07/21/24 History Furosemide [Lasix] 40 mg PO DAILY 02/11/24 07/21/24 History Insulin Glargine,Hum.rec.anlog 16 units SQ DAILY 02/11/24 07/21/24 History [Lantus Solostar Pen] Loperamide [Imodium] 2 mg PO DAILY PRN 02/11/24 07/21/24 History Nitroglycerin Sl Tabs [Nitrostat] 0.4 mg SUBLINGUAL Q5M PRN 02/11/24 07/21/24 History Ranolazine [Ranexa] 1,000 mg PO BID 02/11/24 07/21/24 History Aspirin 81 mg PO DAILY #90 tab 02/13/24 07/21/24 Rx Albuterol Inhaler [Ventolin Hfa 2 puff INHALATION RT-Q6H PRN 07/21/24 07/21/24 History Inhaler] Amiodarone [Cordarone] 200 mg PO BID 07/21/24 07/21/24 History lisinopriL [Zestril] 2.5 mg PO DAILY 07/21/24 07/21/24 History Allergies Allergy/AdvReac Type Severity Reaction Status Date / Time spironolactone AdvReac per [facility] - Verified 07/21/24 14:25 [From Aldactone] unknown Physical Exam Vitals: Vital Signs Temp Pulse Pulse Pulse Pulse Pulse Resp 07/22/24 06:38 97.9 F 61 16 07/22/24 00:02 97.7 F 80 16 07/21/24 23:38 97.7 F 60 18 07/21/24 21:08 61 17 07/21/24 20:32 59 L 16 07/21/24 16:24 59 L 59 L 59 L 07/21/24 16:15 97.4 F L 59 L 20 07/21/24 14:20 98.4 F 82 16 BP BP BP BP BP Pulse Ox 07/22/24 06:38 144/68 98 07/22/24 00:02 145/71 98 07/21/24 23:38 133/66 97 07/21/24 21:08 134/74 98 07/21/24 20:32 142/72 95 07/21/24 16:24 93/55 94/52 127/62 07/21/24 16:15 115/65 99 07/21/24 14:20 118/68 95 Intake and Output 07/21/24 07/22/24 07/22/24 22:59 06:59 14:59 Intake Total 118 Balance 118 Intake: Oral 118 Other: # Voids 0 Weight 81.647 kg Results 07/21/24 14:43 07/21/24 14:43 Cardiac Enzymes 07/21/24 07/21/24 Range/Units 14:43 14:43 AST 24 (17-59) U/L Troponin I <0.012 (0.000-0.034) ng/mL Coagulation 07/21/24 Range/Units 14:43 PT 11.8 (10.0-12.5) sec APTT 26.7 (22.0-30.0) sec CBC 07/21/24 Range/Units 14:43 WBC 8.0 (3.8-10.6) k/uL RBC 3.56 L (4.30-5.90) m/uL Hgb 11.8 L (13.0-17.5) gm/dL Hct 37.7 L (39.0-53.0) % Plt Count 117 L (150-450) k/uL Comprehensive Metabolic Panel 07/21/24 Range/Units 14:43 Sodium 141 (137-145) mmol/L Potassium 4.3 (3.5-5.1) mmol/L Chloride 109 H (98-107) mmol/L Carbon Dioxide 28 (22-30) mmol/L BUN 15 (9-20) mg/dL Creatinine 1.08 (0.66-1.25) mg/dL Glucose 116 H (74-99) mg/dL Calcium 8.0 L (8.4-10.2) mg/dL AST 24 (17-59) U/L ALT 24 (4-49) U/L Alkaline Phosphatase 55 (38-126) U/L Total Protein 5.9 L (6.3-8.2) g/dL Albumin 3.5 (3.5-5.0) g/dL Current Medications Generic Name Dose Route Start Last Admin Trade Name Freq PRN Reason Stop Dose Admin Acetaminophen 650 mg 07/21/24 21:10 Acetaminophen Tab 325 Mg Tab PO Q6HR PRN Mild Pain or Fever > 100.5 Albuterol Sulfate 2.5 mg 07/22/24 06:26 Albuterol Nebulized 2.5 Mg/3 Ml INHALATION RT-Q6H PRN Shortness Of Breath Amiodarone HCl 200 mg 07/23/24 09:00 Amiodarone 200 Mg Tab PO DAILY [facility] Apixaban 5 mg 07/22/24 09:00 07/22/24 07:46 Apixaban 5 Mg Tab PO 5 mg BID NANCY Administration Protocol Aspirin 81 mg 07/22/24 09:00 07/22/24 07:46 Aspirin 81 Mg PO 81 mg DAILY NANCY Administration Atorvastatin Calcium 40 mg 07/22/24 21:00 Atorvastatin 40 Mg Tab PO HS [facility] Calcium Carbonate/Glycine 500 mg 07/22/24 09:00 07/22/24 07:46 Calcium Carbonate 500 Mg Chewable PO 500 mg DAILY NANCY Administration Carvedilol 12.5 mg 07/22/24 07:30 07/22/24 06:52 Carvedilol 12.5 Mg Tab PO 12.5 mg AC-BID NANCY Administration Cholecalciferol 50 mcg 07/22/24 09:00 07/22/24 07:44 Cholecalciferol 25 Mcg (1000 Iu) Tablet PO 50 mcg DAILY NANCY Administration Dapagliflozin 10 mg 07/22/24 09:00 07/22/24 07:44 Dapagliflozin Propanediol 10 Mg Tablet PO 10 mg DAILY NANCY Administration Dextrose/Water 25 ml 07/22/24 06:27 Dextrose 50% Syringe 50 Ml IVP PER PROTOCOL PRN Hypoglycemia Protocol Dextrose/Water 50 ml 07/22/24 06:27 Dextrose 50% Syringe 50 Ml IVP PER PROTOCOL PRN Hypoglycemia Protocol Duloxetine HCl 60 mg 07/22/24 09:00 07/22/24 07:45 Duloxetine Hcl 60 Mg Capsule.Dr PO 60 mg DAILY NANCY Administration Folic Acid 1 mg 07/22/24 09:00 07/22/24 07:45 Folic Acid 1 Mg Tab PO 1 mg DAILY NANCY Administration Hydromorphone HCl 0.5 mg 07/21/24 21:10 07/21/24 21:17 Hydromorphone 0.5 Mg/0.5 Ml Syringe IVP 0.5 mg Q3HR PRN Administration Moderate Pain (Scale 4 to 6) Insulin Aspart 0 unit 07/22/24 07:30 07/22/24 06:45 Insulin Aspart (Novolog) 100 Unit/Ml Vial SQ Not Given ACHS [facility] Protocol Insulin Detemir 16 unit 07/22/24 07:00 07/22/24 06:53 Insulin Detemir (Levemir) 100 Unit/Ml Syr SQ 16 unit DAILY@0700 NANCY Administration Levothyroxine Sodium 125 mcg 07/22/24 07:00 07/22/24 06:53 Levothyroxine 125 Mcg Tab PO 125 mcg 0630 NANCY Administration Loperamide HCl 2 mg 07/22/24 06:26 Loperamide 2 Mg Cap PO DAILY PRN Diarrhea Melatonin 3 mg 07/22/24 21:00 Melatonin 3 Mg Tablet PO HS NANCY Naloxone HCl 0.2 mg 07/21/24 21:10 Naloxone 0.4 Mg/Ml 1 Ml Vial IV Q2M PRN Opioid Reversal Nitroglycerin 0.4 mg 07/22/24 06:26 Nitroglycerin Sl Tabs 0.4 Mg Tab SUBLINGUAL Q5M PRN Chest Pain Eplerenone 25 Mg 12.5 mg 07/22/24 09:00 07/22/24 07:47 Tablet PO Not Given DAILY NANCY Pantoprazole Sodium 40 mg 07/22/24 17:30 Pantoprazole 40 Mg Tablet PO AC-SUPPER NANCY Ranolazine 1,000 mg 07/22/24 09:00 07/22/24 07:45 Ranolazine 500 Mg Tab.Er.12h PO 1,000 mg BID NANCY Administration Tamsulosin HCl 0.4 mg 07/22/24 21:00 Tamsulosin 0.4 Mg Cap.Er.24h PO HS [facility] Intake and Output 07/21/24 07/22/24 07/22/24 22:59 06:59 14:59 Intake Total 118 Balance 118 Intake: Oral 118 Other: # Voids 0 Weight 81.647 kg 07/21/24 14:43 07/21/24 14:43
[2024-07-22 17:00] LABS: Glucose,Whole Blood 122 mg/dL (70-110)
[2024-07-22] MEDS: PANTOPRAZOLE 40 MG TABLET PO SCH (17:48)
[2024-07-22 20:00] LABS: Glucose,Whole Blood 130 mg/dL (70-110)
[2024-07-22] MEDS: TAMSULOSIN 0.4 MG CAP.ER.24H PO SCH (21:30)
[2024-07-22] MEDS: ATORVASTATIN 40 MG TAB PO SCH (21:30)
[2024-07-22] MEDS: MELATONIN 3 MG TABLET PO SCH (21:30)
[2024-07-22] MEDS: METOPROLOL SUCCINATE (ER) 25 MG TAB.ER.24H PO SCH (21:30)
[2024-07-23 03:10] VITALS: RESP 16
[2024-07-23 05:56] LABS: Glucose,Whole Blood 96 mg/dL (70-110)
--- NOTE | 2024-07-23 07:42 | CT ---
EXAMINATION TYPE: CT brain wo con DATE OF EXAM: 07/23/2024 7:11 AM COMPARISON: 07/21/2024 CLINICAL INDICATION: Male, 74 years old with history of left > right leg weakness, weakness, TECHNIQUE: Examination was done in axial plane without intravenous contrast. Coronal and sagittal r econstructions performed. CT DLP: 1070.8 mGycm, Automated exposure control for dose reduction was used. FINDINGS: There is no evidence of acute intracranial hemorrhage, acute ischemic changes, mass, mass-effect, or extra-axial fluid collection. There is no effacement of cerebral sulci or basal subarachnoid cister ns. There is no hydrocephalus. There is no midline shift. Mcgraw-white matter distinction is preserv ed. Mild to moderate volume loss overlying the bilateral cerebral convexities. Mild patchy periventricula r white matter hypodensities in both cerebral hemispheres. A sclerotic calcification of the carotid siphons and prominent within the proximal V4 segment left ve rtebral artery. Mastoid air cells are well pneumatized. Mild to moderately lobulated mucosal thickening floors of the maxillary sinuses. Old blowout fracture right medial orbital wall. Mild mucosal thickening throughou t the ethmoid air cells. IMPRESSION: Mild to moderate cerebral atrophy and mild burden of chronic small vessel ischemic disease. No acute intracranial abnormality seen. [facility], , 07/23/2024 7:40 AM
[2024-07-23] MEDS: AMIODARONE 200 MG TAB PO SCH (09:25)
[2024-07-23 12:18] LABS: Glucose,Whole Blood 93 mg/dL (70-110)
--- NOTE | 2024-07-23 12:27 | P.PN ---
Subjective Progress Note Date: 07/23/24 Principal diagnosis: Syncope with left lower leg weakness. Mr. Webster is a 74-year-old left-handed white male with history of atrial fibrillation for which she takes Eliquis 5 mg twice daily, he also has a history of chest pain and angina as well as diabetes and sciatica. The patient was admitted to [facility] yesterday July 21, 2024 after feeling "dizzy" during the day. He cannot be very specific as to the type of dizziness he was suffering but he says it felt different than his usual dizziness which is lightheadedness on arising. Patient did not note any weakness prior to his fall but he did fall and hit his head and may have lost consciousness. CT of the brain was negative last night from the emergency room. However subsequent to his fall he noted some mild left leg weakness, and this morning he is noting some additional right leg weakness. He states he does have a history of sciatica for some time. His orthostatics were positive in the emergency room with a decline in blood pressure from 1 27-93 systolic over 83-55 diastolic on standing. With a loss of consciousness and the patient denies any tongue biting or bowel or bladder incontinence. The patient states he cannot undergo an MRI of the brain secondary to severe claustrophobia. When he was seen initially July 22, [address] of the head was scheduled for the morning of 05/06 night. When evaluated July 23. His CT scan of the head was reported as negative wi th some mild to moderate atrophy as well as small vessel disease. The patient feels very well and is ready to go home. I do not detect any focal neurologic deficits on exam. He was instructed to continue his Eliquis as well as frequent checkups for the blood pressure and cholesterol. Assessment: Mr. Araujo is a 74-year-old left handed white male with history of atrial fibrillation as well as angina, diabetes, and sciatica. Patient suffered a mechanical fall last night and subsequently noted some left-sided leg weakness. This morning he has some left greater than right leg weakness. He has no other focal neurologic deficits to suggest acute infarct. His CT scan of the head was negative last night, though he does use Eliquis for atrial fibrillation. Plan: 1. Patient should continue his Eliquis at 5 mg twice daily for Antithrombotic protection. 2. He should follow-up with his primary care physician for frequent blood pressure and cholesterol checks. 3. He is cleared for discharge from neurology perspective. Objective - Vital Signs Vital signs: Vital Signs Temp 97.8 F 07/23/24 07:00 Pulse 76 07/23/24 07:00 Resp 16 07/23/24 07:00 BP 136/73 07/23/24 07:00 Pulse Ox 96 07/23/24 07:00 FiO2 Intake & Output 07/22/24 07/23/24 07/23/24 18:59 06:59 18:59 Intake Total 236 360 118 Balance 236 360 118 Intake: Oral 236 360 118 Other: # Voids 3 2 - Labs CBC & Chem 7: 07/21/24 14:43 07/21/24 14:43 Labs: Abnormal Lab Results - Last 24 Hours (Table) 07/22/24 07/22/24 Range/Units 16:59 19:59 POC Glucose (mg/dL) 122 H 130 H (70-110) mg/dL
--- NOTE | 2024-07-23 13:23 | P.PN ---
Subjective Progress Note Date: 07/23/24 PROGRESS NOTE The patient is a 74-year-old male with a known history of CAD status post CABG, cardiomyopathy, ICD implantation who presented with symptoms of dizziness. He is feeling better today, he denies any chest discomfort, dizziness or palpitations, he denies any nausea or vomiting. He has no evidence of discharge from his device. He has been ambulating without difficulties. Medications: Amiodarone 200 mg daily, Eliquis 5 mg twice a day, aspirin once a day, Lipitor 40 mg daily, Farxiga 10 mg daily, eplerenone 12.5 mg daily, insulin, metoprolol succinate 25 mg twice a day, Ranexa 1000 mg twice a day PHYSICAL EXAMINATION: Blood pressure 136/73 heart rate 76 LUNGS: Clear to auscultation HEART: Regular rate and rhythm, S1, S2. No S3. Systolic ejection murmur ABDOMEN: Soft, nontender, no organomegaly EXTREMETIES: No edema LAB: Hemoglobin A1c 5.5 IMPRESSION: 1. Dizziness with no evidence of malignant arrhythmia 2. Ischemic cardiomyopathy 3. Status post CABG 4. Diabetes PLAN: 1. Continue present therapy 2. Increase physical activity 3. Stable from the cardiac standpoint 4. 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
[2024-07-23 14:14] VITALS: BP 121/66; PULSE 100; TEMP 98.2
--- NOTE | 2024-07-24 21:01 | P.DS ---
Providers Date of admission: 07/21/24 21:09 Attending physician: Jenni Cade Consults: 07/21/24 21:10 Consult Physician Routine Consulting Provider: Sukhjinder Schofield Consult Reason/Comments: lt leg weakness Do you want consulting provider notified?: Yes, Notify in am 07/22/24 09:00 Consult Physician Routine Consulting Provider: Osito Hickey Consult Reason/Comments: syncope, loss of conciousness, patient with pacemaker Do you want consulting provider notified?: Yes Primary care physician: Aracelis Lantigua MD Hospital Course: Final Diagnosis Syncope and fall secondary to postural hypotension lisinopril has been held Generalized weakness post fall with left leg weakness. Known history of sciatica. Ischemic cardiomyopathy ef 30-35% History of coronary artery disease with prior CABG/AICD placement Diabetes Mellitus type 2 Hypertension Dyslipidemia Paroxysmal atrial fibrillation with prior cardiac ablation Discharge Disposition Stable for discharge home and to follow up with his primary animal herder. Amiodarone has been decreased to 200 mg daily. He will discharge on toprol XL 25 mg BID. Carvedilol has been discontinued. Hospital Course Pleasant 74-year-old male with medical history significant for atrial fibrillation, hypertension, type 2 diabetes mellitus, coronary artery disease with prior CABG, pacemaker/defibrillator. Patient comes into the hospital secondary to a syncopal episode, was feeling dizzy and lightheaded and than he fell. Patient does report hitting his head and likely loosing consciousness. Patient was subsequently reporting some pain in his leg and also lower back which she does have chronic back pain at baseline. Lumbar spine x-ray reveals no acute fracture there is moderate multilevel disc degeneration. He is also reporting some left leg weakness although does have known history of sciatica. His head cervical spine CT reveals no acute intracranial process, nonspecific white matter changes, likely secondary to small vessel ischemic disease. No evidence of cervical spine fracture, moderate multilevel degenerative disc disease and facet arthropathy. Patient has a known ejection fraction of 30 to 35%. His chest x-ray reveals cardiomegaly and mild pulmonary vascular congestion. Correlate with BNP for congestive heart failure. He did have lactic acidosis on admission. Urinalysis is negative for infection, hemoglobin 11.8, renal function within normal limits. Was given a 1 L fluid bolus his lactic acid has normalized. His lisinopril discontinued with decreased in the dosing of the amiodarone. Is currently running in the 140s systolic. Positive orthostatic blood pressures on admission down into the 90s systolic while standing. EKG reveals V paced rhythm. He was admitted to the hospital on observation with a cardiology and neurology consultation. His AICD was interrogated. He has no evidence of discharge from his device. He has been ambulating without difficulties. Please see medication reconciliation for a list of current medications. Thank you for allowing us to participate in the care of this patient. The impression and plan of care has been dictated by Juju Allen, Nurse Practitioner as directed. Dr. David MD I have performed a history and physical examination and medical decision making of this patient, discussed the same with the dictator, and agree with the dictators assessment and plan as written, documented as a scribe. Based on total visit time, I have performed more than 50% of this visit. Patient Condition at Discharge: Stable Plan - Discharge Summary New Discharge Prescriptions: New Amiodarone [Cordarone] 200 mg PO DAILY #0 tab Metoprolol Succinate (ER) [Toprol XL] 25 mg PO BID #60 tab Continue Apixaban [Eliquis] 5 mg PO BID Folic Acid 1 mg PO DAILY Rosuvastatin Calcium 20 mg PO HS Levothyroxine Sodium 125 mcg PO DAILY Eplerenone 12.5 mg PO DAILY DULoxetine HCL [Cymbalta] 60 mg PO DAILY Nitroglycerin Sl Tabs [Nitrostat] 0.4 mg SUBLINGUAL Q5M PRN PRN Reason: Chest Pain Insulin Glargine,Hum.rec.anlog [Lantus Solostar Pen] 16 units SQ DAILY Calcium Carbonate 500 mg PO DAILY Alfuzosin HCl [Alfuzosin HCl ER] 10 mg PO HS Ranolazine [Ranexa] 1,000 mg PO BID Aspirin 81 mg PO DAILY #90 tab lisinopriL [Zestril] 2.5 mg PO DAILY Albuterol Inhaler [Ventolin Hfa Inhaler] 2 puff INHALATION RT-Q6H PRN PRN Reason: Shortness Of Breath Pantoprazole [Protonix] 40 mg PO AC-SUPPER Melatonin 3 mg PO HS Empagliflozin [Jardiance] 25 mg PO DAILY Cholecalciferol (Vitamin D3) [Vitamin D3 (50 Mcg = 2000 Iu)] 50 mcg PO DAILY Loperamide [Imodium] 2 mg PO DAILY PRN PRN Reason: Diarrhea Furosemide [Lasix] 40 mg PO DAILY Discontinued carvediloL 12.5 mg PO BID Amiodarone [Cordarone] 200 mg PO BID Discharge Medication List Apixaban [Eliquis] 5 mg PO BID 02/02/24 [History] Cholecalciferol (Vitamin D3) [Vitamin D3 (50 Mcg = 2000 Iu)] 50 mcg PO DAILY 02/02/24 [History] DULoxetine HCL [Cymbalta] 60 mg PO DAILY 02/02/24 [History] Empagliflozin [Jardiance] 25 mg PO DAILY 02/02/24 [History] Eplerenone 12.5 mg PO DAILY 02/02/24 [History] Folic Acid 1 mg PO DAILY 02/02/24 [History] Levothyroxine Sodium 125 mcg PO DAILY 02/02/24 [History] Melatonin 3 mg PO HS 02/02/24 [History] Pantoprazole [Protonix] 40 mg PO AC-SUPPER 02/02/24 [History] Rosuvastatin Calcium 20 mg PO HS 02/02/24 [History] Alfuzosin HCl [Alfuzosin HCl ER] 10 mg PO HS 02/11/24 [History] Calcium Carbonate 500 mg PO DAILY 02/11/24 [History] Furosemide [Lasix] 40 mg PO DAILY 02/11/24 [History] Insulin Glargine,Hum.rec.anlog [Lantus Solostar Pen] 16 units SQ DAILY 02/11/24 [History] Loperamide [Imodium] 2 mg PO DAILY PRN 02/11/24 [History] Nitroglycerin Sl Tabs [Nitrostat] 0.4 mg SUBLINGUAL Q5M PRN 02/11/24 [History] Ranolazine [Ranexa] 1,000 mg PO BID 02/11/24 [History] Aspirin 81 mg PO DAILY #90 tab 02/13/24 [Rx] Albuterol Inhaler [Ventolin Hfa Inhaler] 2 puff INHALATION RT-Q6H PRN 07/21/24 [History] lisinopriL [Zestril] 2.5 mg PO DAILY 07/21/24 [History] Amiodarone [Cordarone] 200 mg PO DAILY #0 tab 07/23/24 [Rx] Metoprolol Succinate (ER) [Toprol XL] 25 mg PO BID #60 tab 07/23/24 [Rx] Follow up Appointment(s)/Referral(s): Aracelis Lantigua MD [Primary Care Provider] - 1-2 days (please call the office for an appointment) Patient Instructions/Handouts: Syncope (DC), Fall Prevention for Older Adults (DC) Activity/Diet/Wound Care/Special Instructions: Follow up with your usual animal herder at the [facility]. Discharge Disposition: HOME SELF-CARE
== END 2024-07-23 15:47 | disposition home or self-care (01) ==
LOC: EC 14:18 → 6NMEDSUR 21:09
PROVIDERS: ADMIT Hospitalist; ATTEND Hospitalist
DX: I95.1 Orthostatic hypotension (principal); E87.20 Acidosis, unspecified; E11.9 Type 2 diabetes mellitus without complications; I25.10 Atherosclerotic heart disease of native coronary artery without angina pectoris; Z95.1 Presence of aortocoronary bypass graft; Z95.810 Presence of automatic (implantable) cardiac defibrillator; I25.5 Ischemic cardiomyopathy; E78.5 Hyperlipidemia, unspecified; I11.0 Hypertensive heart disease with heart failure; I50.9 Heart failure, unspecified; M54.30 Sciatica, unspecified side; W19.XXXA Unspecified fall, initial encounter; G89.29 Other chronic pain; M54.9 Dorsalgia, unspecified; M79.606 Pain in leg, unspecified; R09.89 Other specified symptoms and signs involving the circulatory and respiratory systems; I48.19 Other persistent atrial fibrillation; F40.240 Claustrophobia; Z79.01 Long term (current) use of anticoagulants; Z79.899 Other long term (current) drug therapy; Z79.84 Long term (current) use of oral hypoglycemic drugs; Z79.890 Hormone replacement therapy; Z79.82 Long term (current) use of aspirin
CPT/HCPCS: 96361; 96374; 99285; 36415; 93005; 80053; 83605; 83735; 84484; 85025; 85610; 85730; 81003; 83036; 72100; 71046; 72125; 70450 ×2; G0378 ×3; J1171